=== PATIENT | female | born 1940 | race Caucasian/White ===

== ENCOUNTER 2016-09-22 11:57 | Inpatient (IN) ==
--- NOTE | 2016-09-22 12:43 | Emergency Department Note ---
Disposition Clinical Impression: NSTEMI (non-ST elevated myocardial infarction) Dyspnea Qualifiers: Dyspnea type: dyspnea on exertion Qualified Code(s): R06.09 - Other forms of dyspnea Pulmonary embolism Qualifiers: Pulmonary embolism type: other Chronicity: acute Acute cor pulmonale presence: without acute cor pulmonale Qualified Code(s): I26.99 - Other pulmonary embolism without acute cor pulmonale Disposition: Admitted As Inpatient Condition: Fair Referrals: Gudelia Celis MD [Primary Care Provider] - SOB HPI - General Stated Complaint: "shoulder blade pain"/EKG changes Time Seen by Provider: 09/22/16 12:27 Source: patient, family Mode of arrival: ambulatory Nursing Notes Reviewed: Yes Vital Signs Reviewed: Yes - History of Present Illness Pt Subjective Complaint: shortness of breath Onset (ago): day(s) (3) Context: recent illness (Rhinorrhea or congestion shortness of breath) Severity: moderate Consistency/Duration: intermittent Improves with: rest Worsens with: exertion Associated symptoms: Reports: cough. Denies: chest pain (Patient had some chest pain but none today), wheezing, sputum production, orthopnea Treatment prior to arrival: none Cough present: No Cough Description: Involuntary Cough Frequency: Intermittent Sputum production: No - Related Data Home Medications Medication Instructions Recorded Confirmed Atenolol [Tenormin] 50 mg PO BID 09/22/16 09/22/16 Calcium Carbonate/Vitamin D3 1 each PO DAILY 09/22/16 09/22/16 [Calcium 600-Vit D3 200 Tablet] Diclofenac Sodium [Voltaren] 2 gm TP QID PRN 09/22/16 09/22/16 Hydrochlorothiazide 25 mg PO BID 09/22/16 09/22/16 NIFEdipine [Nifedipine ER] 90 mg PO DAILY 09/22/16 09/22/16 [place]-3S/Dha/Epa/Fish Oil [Fish 1 each PO DAILY 09/22/16 09/22/16 Oil 1,200 mg Softgel] Potassium Chloride [K-Tab ER] 20 meq PO BID 09/22/16 09/22/16 Rosuvastatin [Crestor] 40 mg PO MO 09/22/16 09/22/16 Allergies Allergy/AdvReac Type Severity Reaction Status Date / Time atorvastatin [From Lipitor] AdvReac Muscle Pain Verified 09/22/16 13:08 rosuvastatin [From Crestor] AdvReac Muscle Pain Verified 09/22/16 17:08 All systems ED: reviewed and negative except as stated. Constitutional: Denies: fever, chills Cardiovascular: Reports: dyspnea on exertion. Denies: chest pain, palpitations Gastrointestinal: Denies: abdominal pain, nausea, vomiting, hematemesis Past Medical History - Past Medical History Source: patient, old records reviewed, nursing notes reviewed Physical Exam - General Limitations: no limitations General appearance: alert, in no apparent distress - Head Head exam: atraumatic, normocephalic, normal inspection - Eye Eye exam: Present: normal appearance, PERRL, EOMI - Expanded Eye Exam Pupils: Left: reactive - ENT ENT exam: normal exam, normal oropharynx, mucous membranes moist - Expanded ENT Exam External ear exam: Present: normal external inspection Mouth exam: Present: normal external inspection Teeth exam: Present: normal inspection Throat exam: Present: normal inspection - Neck Neck exam: Present: normal inspection, full ROM, trachea midline - Chest Chest inspection: Present: normal inspection, symmetric chest wall rise - Respiratory Respiratory exam: Present: normal lung sounds bilaterally - Cardiovascular Cardiovascular exam: Present: regular rate, irregular rhythm, normal heart sounds - Abdominal Exam Abdominal exam: Present: soft, Non-Tender. Absent: tenderness, distention, guarding, rebound, rigidity - Extremities Exam Extremities exam: Present: normal inspection, full ROM. Absent: tenderness, pedal edema - Expanded Upper Extremity Exam Shoulder exam: Present: normal inspection, full ROM Arm exam: Present: normal inspection, full ROM Elbow exam: Present: normal inspection, full ROM Forearm/Wrist exam: Present: normal inspection, full ROM Hand exam: Present: normal inspection, full ROM Vascular exam: Normal: capillary refill, radial pulse - Expanded Lower Extremity Exam Hip/Pelvis exam: Present: normal inspection, full ROM Upper leg exam: Present: normal inspection, full ROM Knee exam: Present: normal inspection, full ROM Lower leg exam: Present: normal inspection, full ROM Ankle exam: Present: normal inspection, full ROM Foot/toe exam: Present: normal inspection, full ROM Neurovascular/Tendon exam: Absent: motor deficit, sensory deficit, tendon deficit - Back Exam Back exam: Present: normal inspection, full ROM. Absent: tenderness - Neurological Exam Neurological exam: Present: alert, oriented X3 - Expanded Neurological Exam Patient oriented to: Present: person, place, time Coma Scale Eye Opening: Spontaneous Coma Scale Motor Response: Obeys Commands Coma Scale Verbal Response: Oriented Coma Scale Total: 15 - Psychiatric Psychiatric exam: Present: normal affect, normal mood - Skin Skin exam: Present: warm, dry, intact, normal color Course Vital Signs Temperature 97.6 F 09/22/16 12:56 Pulse Rate 64 09/22/16 12:56 Respiratory Rate 16 09/22/16 12:56 Blood Pressure 148/103 09/22/16 12:56 O2 Sat by Pulse Oximetry 92 L 09/22/16 12:56 Temperature 97.6 F 09/22/16 12:56 Pulse Rate 72 09/22/16 15:30 Respiratory Rate 16 09/22/16 15:30 Blood Pressure 121/89 09/22/16 15:30 O2 Sat by Pulse Oximetry 96 09/22/16 15:30 Oxygen Delivery Oxygen Delivery Nasal Cannula Shortness of Breath/Dyspnea - MDM Narrative Medical decision making narrative: I spoke with Dr. Barraza cardiology patient is not having any chest pain during her ER stay we will treat her with heparin drip the nuclear medicine scan was in immediate the plan will be to hydrate her and get a CTA tomorrow if her creatinine improves cardiology will see in consultation medicine will admit. - Differential Diagnosis Likely: acute exacerbation of chronic obstructive airways disease, congestive heart failure, pneumonia, asthma with exacerbation, pulmonary embolism, pneumothorax, arrhythmia - Medical Records Medical records reviewed: Yes I reviewed the patient's medical records. - Lab Data Lab results reviewed: Yes I reviewed the patient's lab results. Result diagrams: 09/22/16 12:55 09/22/16 12:55 Lab Results 09/22/16 09/22/16 09/22/16 Range/Units 12:55 12:55 12:55 WBC (4.3-11.1) K/mcL RBC (3.82-4.97) M/mcL Hgb (11.5-15.4) g/dL Hct (35.3-44.9) % MCV (83.0-100.0) fL MCH (28.0-33.3) pg MCHC (31.6-35.5) g/dL RDW (11.5-14.5) % Plt Count (140-400) K/mcL MPV (9.4-12.4) fL Immature Gran % (0-4) % Seg Neutrophils % % Lymphocytes % % Monocytes % % Eosinophils % % Basophils % % Neutrophils # (1.6-8.9) K/mcL Lymphocytes # (0.6-4.6) K/mcL Monocytes # (0.0-1.3) K/mcL Eosinophils # (0.0-0.6) K/mcL Basophils # (0.0-0.2) K/mcL Nucleated RBCs/100 WBC (0) /100 WBC PT 15.9 H (9.4-12.1) Seconds INR 1.5 APTT 28.3 (26.0-36.0) Seconds Sodium (136-145) mEq/L Potassium (3.5-4.5) mEq/L Chloride (98-109) mEq/L Carbon Dioxide (19-29) mEq/L BUN (7-20) mg/dL Creatinine (0.57-1.11) mg/dL Est GFR ( Amer) (> 60) Est GFR (Non-Af Amer) (> 60) BUN/Creatinine Ratio (6-26) Glucose (70-99) mg/dL Calculated Osmolality (280-300) Calcium (8.6-10.8) mg/dL Total Bilirubin 0.9 (0.2-1.2) mg/dL Direct Bilirubin 0.3 (0.0-0.5) mg/dL Indirect Bilirubin 0.6 (0.0-1.2) mg/dL AST 13 (5-34) Units/L ALT 17 (0-55) Units/L Alkaline Phosphatase 100 (38-126) Units/L Troponin I (0-0.03) ng/mL B-Natriuretic Peptide 1888 H (0-100) pg/mL Serum Total Protein 7.8 (6.0-8.3) g/dL Albumin 3.2 L (3.5-5.0) g/dL Globulin 4.6 H (2.4-3.5) g/dL Albumin/Globulin Ratio 0.7 L (1.1-2.2) Lipase 22 (8-78) Units/L 09/22/16 09/22/16 09/22/16 Range/Units 12:55 12:55 12:55 WBC 9.7 (4.3-11.1) K/mcL RBC 5.00 H (3.82-4.97) M/mcL Hgb 14.7 (11.5-15.4) g/dL Hct 45.5 H (35.3-44.9) % MCV 91.0 (83.0-100.0) fL MCH 29.4 (28.0-33.3) pg MCHC 32.3 (31.6-35.5) g/dL RDW 14.2 (11.5-14.5) % Plt Count 233 (140-400) K/mcL MPV 11.6 (9.4-12.4) fL Immature Gran % 0.7 (0-4) % Seg Neutrophils % 76.1 % Lymphocytes % 16.0 % Monocytes % 6.9 % Eosinophils % 0.1 % Basophils % 0.2 % Neutrophils # 7.4 (1.6-8.9) K/mcL Lymphocytes # 1.6 (0.6-4.6) K/mcL Monocytes # 0.7 (0.0-1.3) K/mcL Eosinophils # 0.0 (0.0-0.6) K/mcL Basophils # 0.0 (0.0-0.2) K/mcL Nucleated RBCs/100 WBC 0.3 H (0) /100 WBC PT (9.4-12.1) Seconds INR APTT (26.0-36.0) Seconds Sodium 140 (136-145) mEq/L Potassium 3.7 (3.5-4.5) mEq/L Chloride 100 (98-109) mEq/L Carbon Dioxide 28 (19-29) mEq/L BUN 51 H (7-20) mg/dL Creatinine 1.25 H (0.57-1.11) mg/dL Est GFR ( Amer) 50 L (> 60) Est GFR (Non-Af Amer) 42 L (> 60) BUN/Creatinine Ratio 41 H (6-26) Glucose 151 H (70-99) mg/dL Calculated Osmolality 307 H (280-300) Calcium 9.6 (8.6-10.8) mg/dL Total Bilirubin (0.2-1.2) mg/dL Direct Bilirubin (0.0-0.5) mg/dL Indirect Bilirubin (0.0-1.2) mg/dL AST (5-34) Units/L ALT (0-55) Units/L Alkaline Phosphatase (38-126) Units/L Troponin I 0.23 H* (0-0.03) ng/mL B-Natriuretic Peptide (0-100) pg/mL Serum Total Protein (6.0-8.3) g/dL Albumin (3.5-5.0) g/dL Globulin (2.4-3.5) g/dL Albumin/Globulin Ratio (1.1-2.2) Lipase (8-78) Units/L - Radiology Data Radiology results reviewed: Yes I reviewed the patient's radiology results. - EKG Data EKG attestation: Yes I reviewed and interpreted this EKG. Rate: Reports: normal Rhythm: Reports: A.Fib Murphy/QRS: Reports: normal Interpretation: Reports: nonspecific ST-T wave changes Critical Care Time Critical Care Time: Yes Total Critical Care Time: 40 Attestation: Critical care performed: Time is exclusive of separately billable procedures. Time includes: direct patient care, patient reassessment, coordination of patient care, interpretation of data (laboratory data, radiology data, and respiratory data), review of patient's medical records, medical consultation and documentation of patient care. Procedures included in critical care time: Procedures excluded from critical care time:
[2016-09-22 13:04] LABS: Basophils % 0.2 %; Eosinophils % 0.1 %; Hematocrit 45.5 % (35.3-44.9); Hemoglobin 14.7 g/dL (11.5-15.4); Immature Granulocytes % 0.7 % (0-4); Lymphocytes # 1.6 K/mcL (0.6-4.6); Mean Corpuscular HGB Conc 32.3 g/dL (31.6-35.5); Mean Corpuscular Hemoglobin 29.4 pg (28.0-33.3); Mean Platelet Volume 11.6 fL (9.4-12.4); Monocytes # 0.7 K/mcL (0.0-1.3); Monocytes % 6.9 %; Neutrophils # 7.4 K/mcL (1.6-8.9); Nucleated Red Blood Cells 0.3 /100 WBC (0); Platelet Count 233 K/mcL (140-400); Red Cell Distribution Width 14.2 % (11.5-14.5); Segmented Neutrophils % 76.1 %
[2016-09-22 13:10] LABS: INR 1.5; Prothrombin Time 15.9 Seconds (9.4-12.1)
[2016-09-22 13:12] LABS: Activated Partial Thrombo Time 28.3 Seconds (26.0-36.0)
[2016-09-22 13:20] LABS: Calcium 9.6 mg/dL (8.6-10.8); Potassium 3.7 mEq/L (3.5-4.5)
[2016-09-22 13:21] LABS: Albumin 3.2 g/dL (3.5-5.0); Albumin/Globulin Ratio 0.7 (1.1-2.2); Bilirubin,Direct 0.3 mg/dL (0.0-0.5); Bilirubin,Indirect 0.6 mg/dL (0.0-1.2); Bilirubin,Total 0.9 mg/dL (0.2-1.2); Globulin 4.6 g/dL (2.4-3.5); Total Protein 7.8 g/dL (6.0-8.3)
[2016-09-22] MEDS ORDERED: Aspirin 81 MG TAB.CHEW PO STA (14:09)
[2016-09-22] MEDS ORDERED: *HR* Heparin 5,000 UNIT/ML VIAL IVP PRN ×2 (15:54)
[2016-09-22] MEDS ORDERED: *HR* Heparin 5,000 UNIT/ML VIAL IVP ONE (15:54)
[2016-09-22] MEDS ORDERED: Heparin 25,000 UNIT/500 ML D5W 25,000 UNIT/500 ML MLS IVC SCH (16:00)
[2016-09-22] MEDS ORDERED: Acetaminophen 325 MG TABLET PO PRN (19:28)
[2016-09-22] MEDS ORDERED: Naloxone 0.4 MG/ML INJ IVP PRN (19:28)
[2016-09-22] MEDS: *HR* Enoxaparin 120 MG/0.8 ML SYRINGE SQ SCH (20:50)
--- NOTE | 2016-09-22 20:58 | Internal Med History&Physical ---
Date of Encounter: 09/22/16 Time of Encounter: 20:15 Assessment and Plan (1) Acute respiratory failure with hypoxia Current visit: Yes Status: Acute Patient with acute respiratory failure and hypoxia. Certain etiology. Will admit inpatient. Could be due to pulmonary embolism as patient's chest x-ray appears clear. VQ scan shows intermediate probability. On O2 supplementation. High risk for complications. (2) Atrial fibrillation Current visit: Yes Status: Chronic Likely chronic but controlled atrial fibrillation. On EKG and on telemetry. Patient on atenolol. Will continue. Not on any anticoagulation but patient is currently receiving Lovenox. Qualifiers: Atrial fibrillation type: paroxysmal Qualified Code(s): I48.0 - Paroxysmal atrial fibrillation (3) NSTEMI (non-ST elevated myocardial infarction) Current visit: Yes Status: Acute Elevated troponins. Non-ST elevation myocardial infarction versus hypoxia related. Started on Lovenox. We will get 2-D echocardiogram tomorrow. Telemetry. Trend troponins. Nitroglycerin patient develops chest pain (4) Pulmonary embolism Current visit: Yes Status: Suspected Patient has hypoxia disproportionate to chest x-ray findings. We just cannot shows intermediate probability for PE. Will get CT scan of the chest with contrast when her kidney function improves. Qualifiers: Pulmonary embolism type: other Chronicity: acute Acute cor pulmonale presence: without acute cor pulmonale Qualified Code(s): I26.99 - Other pulmonary embolism without acute cor pulmonale (5) Acute renal failure Current visit: Yes Status: Acute Patient has elevated BUN and creatinine are up over her baseline. Could be related to dehydration. Patient also on hydrochlorothiazide at home. We will gently hydrate and follow renal function. Hold hydrochlorothiazide. Qualifiers: Acute renal failure type: unspecified Qualified Code(s): N17.9 - Acute kidney failure, unspecified Internal Medicine - H&P: HPI Chief complaint: Shortness of breath with ambulation Admitted From: Emergency Dept Plans for Post Hospital Care: Home History of present illness: Ms. Corral is a 76 year old female patient with history of hypertension, hyperlipidemia and ovarian cancer presented to the ER with complaints of shortness of breath especially with ambulation. She would get really tired and had to take a break even after walking short distances. She does not use oxygen at home. She has never had any coronary artery disease or has been diagnosed with congestive heart failure. She denies any chest pain but she did have some pain in her right subscapular area earlier today that has spontaneously resolved. She denies any cough, fever or chills or night sweats. Denies any palpitations. She does recollect having an abnormal heart rhythm but she does not know exactly what it is other than skipped or dropped beats that she used to have. No nausea or vomiting. No diarrhea or constipation. She has not developed any recent leg swelling. No recent travel. Past Med Surg Social Fam HX - Past Medical History Medical history: cancer, hyperlipidemia, hypertension Psychiatric history: no psych history - Social History Smoking Status: Never smoker Smokeless Tobacco Status: No Alcohol use: none Drug use: none - Additional Family History Additional family history: Reviewed and found noncontributory at this time Internal Medicine - H&P: Meds Atenolol [Tenormin] 50 mg PO BID 09/22/16 [History] Calcium Carbonate/Vitamin D3 [Calcium 600-Vit D3 200 Tablet] 1 each PO DAILY 01/03 [History] Diclofenac Sodium [Voltaren] 2 gm TP QID PRN 09/22/16 [History] Hydrochlorothiazide 25 mg PO BID 09/22/16 [History] NIFEdipine [Nifedipine ER] 90 mg PO DAILY 09/22/16 [History] [place]-3S/Dha/Epa/Fish Oil [Fish Oil 1,200 mg Softgel] 1 each PO DAILY 09/22/16 [ History] Potassium Chloride [K-Tab ER] 20 meq PO BID 09/22/16 [History] Rosuvastatin [Crestor] 40 mg PO MO 09/22/16 [History] Allergies atorvastatin [From Lipitor] Adverse Reaction (Verified 09/22/16 13:08) Muscle Pain rosuvastatin [From Crestor] Adverse Reaction (Verified 09/22/16 17:08) Muscle Pain Patient states she does take this medication once weekly, however she cannot take daily. All Systems PM: A 10-system review of systems was performed and is negative for pertinent findings except as documented above in the HPI. - Constitutional Constitutional: no chills, no fever(s), no night sweats - EENT Eyes: no change in vision, no discharge, no pain, no photophobia Ears: no ear discharge, no ear pain, no tinnitus Nose, mouth and throat: no dysphagia, no nasal discharge, no neck pain, no sore throat - Cardiovascular Cardiovascular ROS IM: dyspnea, dyspnea on exertion, no chest pain, no diaphoresis, no lightheadedness, no palpitations, no syncope - Respiratory Respiratory: no cough, no dyspnea, no wheezing, no excessive phlegm production - Gastrointestinal Gastrointestinal: no abdominal pain, no diarrhea, no hematemesis, no hematochezia, no melena, no nausea, no vomiting - Genitourinary Genitourinary: no change in urinary stream, no dysuria, no flank pain, no hematuria - Musculoskeletal Musculoskeletal ROS IM: no numbness, no tingling - Neurological Neurological ROS: no confusion, no convulsions, no focal weakness, no numbness, no tingling, no tremor(s) - Psychiatric Psychiatric: no behavioral changes, no confusion - Hematologic/Lymphatic Hematologic/Lymphatic: no easy bruising - Constitutional Vitals: Temp Pulse Resp BP Pulse Ox 97.5 F L 72 20 137/86 89 L 09/22/16 19:25 09/22/16 19:25 09/22/16 19:25 09/22/16 19:25 09/22/16 19:25 General appearance: Present: cooperative, A&O X 3, pleasant, obese, answers questions appropriately Exam: Moderate respiratory distress - Eye Eye exam: Present: EOMI, PERRL, conjuntiva pink, sclera anicteric - Neck Neck exam general surgery: Present: supple, trachea midline. Absent: lymphadenopathy - Respiratory Respiratory exam: Present: CTAB. Absent: accessory muscle use, rales, rhonchi, wheezes - Cardiovascular Cardiovascular exam: Present: irregular rhythm, +S1, +S2. Absent: diastolic murmur, gallop, rubs, systolic murmur - GI/Abdominal GI/Abdominal exam: Present: normal bowel sounds, soft, no peritoneal signs. Absent: distended, tenderness - Extremities Exam Extremities exam: Present: warm, radial pulses palpable and symetrical. Absent : calf tenderness, cyanotic, pedal edema - Neurological Exam Neurological exam: Present: alert, oriented X3, no focal deficits. Absent: facial droop, speech deficit - Skin Skin exam: Present: dry, intact Internal Med - H&P Results - Labs CBC & Chem 7: 09/22/16 12:55 09/22/16 12:55 - Impressions Impressions Chest X-Ray 09/22/16 12:34 IMPRESSION: No acute abnormality. D/ / Greyson Huynh MD / Greyson Huynh MD Interpreting Provider: Greyson Huynh MD Pulmonary Perfusion Imaging 09/22/16 15:03 IMPRESSION: Intermediate probability of pulmonary embolus, primarily on the left. If there is strong clinical concern for pulmonary emboli, Consider chest CTPA. D/ / Terrance Salcido MD / Terrance Salcido MD Interpreting Provider: Terrance Salcido MD - Attending Attestation This document has been at least partially created by [employer] recognition technology by Dr. Hernandez. Errors in grammar, wording or other phrases may exist. If errors are found after the documentation is signed, they will be addressed individually in the addendum section of this document when appropriate.
[2016-09-22] MEDS ORDERED: 0.9 % Sodium Chloride 1,000 ML IVC SCH (21:15)
[2016-09-23 02:03] LABS: Basophils % 0.4 %; Eosinophils % 0.1 %; Hematocrit 41.5 % (35.3-44.9); Hemoglobin 13.3 g/dL (11.5-15.4); Immature Granulocytes % 0.9 % (0-4); Immature Platelets 12.4 % (1.1-6.1); Lymphocytes # 1.7 K/mcL (0.6-4.6); Mean Corpuscular Hemoglobin 29.3 pg (28.0-33.3); Mean Corpuscular Volume 91.4 fL (83.0-100.0); Mean Platelet Volume 12.2 fL (9.4-12.4); Monocytes # 0.8 K/mcL (0.0-1.3); Monocytes % 8.1 %; Neutrophils # 7.3 K/mcL (1.6-8.9); Nucleated Red Blood Cells 0.9 /100 WBC (0); Platelet Count 182 K/mcL (140-400); Red Blood Count 4.54 M/mcL (3.82-4.97); Red Cell Distribution Width 14.3 % (11.5-14.5); Segmented Neutrophils % 73.5 %
[2016-09-23 02:32] LABS: BUN/Creatinine Ratio 49 (6-26); Blood Urea Nitrogen 51 mg/dL (7-20); Calcium 8.6 mg/dL (8.6-10.8); Carbon Dioxide 21 mEq/L (19-29); Chloride 104 mEq/L (98-109); Chol/HDL Ratio 6.7 (0-4.9); Cholesterol 215 mg/dL (< 200); Glucose 113 mg/dL (70-99); HDL Cholesterol 32 mg/dL (40-59); LDL Cholesterol,Calculated 151 mg/dL (0-99); Osmolality,Calculated 304 (280-300); Potassium 3.4 mEq/L (3.5-4.5); Sodium 140 mEq/L (136-145); Triglycerides 159 mg/dL (< 150); eGFR For African Americans > 60 (> 60); eGFR For Non-African Americans 51 (> 60)
[2016-09-23 03:20] LABS: Large Platelets Present (Not Present); Platelet Estimate Normal (Normal); Polychromasia 1+ (Not Present)
--- NOTE | 2016-09-23 03:59 | Electrocardiograph Report ---
[facility] [employer] Test Date: 2016-09-22 Pat Name: Clementina Corral Department: 102 Room: [id number] Gender: F Backside Grinder: : [id number] Requested By: Geo Jackson Order Number: [id number] Reading MD: Manuel Jacobs MD Measurements Intervals [place] Rate: 79 P: ND: 0 QRS: 48 QRSD: 106 T: 135 QT: 362 QTc: 396 Interpretive Statements ATRIAL FIBRILLATION ST DEVIATION AND MODERATE T-WAVE ABNORMALITY, CONSIDER LATERAL ISCHEMIA Electronically Signed On 09-23-2016 3:58:06 EST by Manuel Jacobs MD
[2016-09-23] MEDS: *HR* Enoxaparin 120 MG/0.8 ML SYRINGE SQ SCH (06:03)
[2016-09-23] MEDS ORDERED: VITAMIN D3 PO SCH (09:00)
[2016-09-23] MEDS ORDERED: NIFEdipine XL (24 HR) 30 MG TAB.ER.24 PO SCH (09:00)
[2016-09-23] MEDS ORDERED: (Omega-3s/Dha/Epa/Fish Oil [Fish Oil 1,200 Mg Softgel PO SCH (09:00)
[2016-09-23] MEDS ORDERED: CALCIUM CARBONATE PO SCH (09:00)
--- NOTE | 2016-09-23 10:38 | Cardiology Consult Note ---
Date of Encounter: 09/23/16 Time of Encounter: 08:30 Assessment and Plan (1) Pulmonary embolism Current Visit: Yes Status: Suspected Per cardiology: -Shortness of breath for 3 days. Right sided shoulder blade pain. Currently not tachy, but was on arrival. Is requiring NC 6L O2 (not on home O2). -Chest x-ray negative. -VQ perfusion scan with intermediate probability of PE, primarily of the left lung. -No CT performed due to ADINA. -Management per primary service. -Discussed and reviewed with Dr. Barraza, recommend CT chest (patient's creatinine improved today). -On Lovenox -Suspect possible PE, may be contributing to elevated troponin. -Will check echo (ANDREW) Qualifiers: Pulmonary embolism type: other Chronicity: acute Acute cor pulmonale presence: without acute cor pulmonale Qualified Code(s): I26.99 - Other pulmonary embolism without acute cor pulmonale (2) Elevated troponin Current Visit: Yes Status: Acute Per cardiology: -Flat and adynamic troponins of 0.23, 0.23, and 0.26. -Elevated in the setting of possible PE (intermediate on VQ) and ADINA. -On therapeutic lovenox. -Echo pending per primary service. -Will add asa 81mg daily. -Suspect demand ischemia due to possible PE -Recommend medical management at this time. No cardiac rehab warranted. -Further recommendations pending echocardiogram. (ANDREW) (3) Elevated brain natriuretic peptide (BNP) level Current Visit: Yes Status: Acute Per Cardiology: BNP elevated in the 1800s. Euvolemic on exam. Chest x-ray with no acute findings. Does not appear to be in overt heart failure. Previous EF on echo 6%, mild diastolic dysfunction, normal RV structure and function, trace TR. Echo pending. Further recs after echo. Not currently on diuretics, clinically appears stable. Presented with mild ADINA. (4) Acute kidney injury Current Visit: Yes Status: Acute Per cardiology: -Creatinine on admission 1.25. -Baseline 0.8. -Today creatinine 1.05. -Management per primary service. -May be contributing to elevated troponin. (ANDREW) Discussion w patient/family: The assessment and plan as outlined above was discussed with the patient and/or family members who expressed understanding and agreement. All questions were answered. Thank you for involving us in the care of your patient. Please call with any questions. Patient seen and examined with ROBERT Strong Discussed and reviewed with . History of Present Illness Consult date: 09/22/16 Requesting physician: Teresita Hernandez Consult reason: ?NSTEMI Chief complaint: Shortness of breath History of present illness: Ms. Corral is a 76 year old female with a relevant past medical history of HTN and hyperlipidemia. Patient presented to the ER due to worsening shortness of breath and right sided shoulder blade pain. Patient states shortness of breath and right shoulder blade pain began 3 days ago. States symptoms were accompanied by a cough. Patient denies left sided chest pain. Patient denies fever,chills, nausea, or vomiting. Patient denies increased fatigue. Admits to shortness of breath with excertion. (ANDREW) Past Med Surg Social Fam HX - Past Medical History Attestation: Yes The following information was validated with the patient. Source: patient, old records reviewed Medical history: cancer, hyperlipidemia, hypertension Psychiatric history: no psych history - Social History Smoking Status: Never smoker Smokeless Tobacco Status: No Alcohol use: none Drug use: none Medications and Allergies Atenolol [Tenormin] 50 mg PO BID 09/22/16 [History] Calcium Carbonate/Vitamin D3 [Calcium 600-Vit D3 200 Tablet] 1 each PO DAILY 01/03 [History] Diclofenac Sodium [Voltaren] 2 gm TP QID PRN 09/22/16 [History] Hydrochlorothiazide 25 mg PO BID 09/22/16 [History] NIFEdipine [Nifedipine ER] 90 mg PO DAILY 09/22/16 [History] [place]-3S/Dha/Epa/Fish Oil [Fish Oil 1,200 mg Softgel] 1 each PO DAILY 09/22/16 [ History] Potassium Chloride [K-Tab ER] 20 meq PO BID 09/22/16 [History] Rosuvastatin [Crestor] 40 mg PO MO 09/22/16 [History] Allergies atorvastatin [From Lipitor] Adverse Reaction (Verified 09/22/16 13:08) Muscle Pain rosuvastatin [From Crestor] Adverse Reaction (Verified 09/22/16 17:08) Muscle Pain Patient states she does take this medication once weekly, however she cannot take daily. All Systems Review: A 10-system review of systems was performed and is negative for pertinent findings except as documented above in the HPI. - Cardiovascular Cardiovascular: as per HPI, dyspnea on exertion - Respiratory Respiratory: cough, dyspnea Physical Examination Selected Entries 09/23/16 04:00 09/23/16 07:17 Temperature 97.5 F L 97.7 F Pulse Rate 71 84 Respiratory Rate 18 18 Blood Pressure 125/80 130/84 O2 Sat by Pulse Oximetry 93 L 91 L General: Conversant, No Apparent Distress HEENT: Atraumatic, Normocephaly, Mucus Membranes Moist Neck: No JVD, Normal carotid pulses Cardiac: Reg Rate and Rhythm, Normal S1 and S2, No Murmur Lungs: Normal Breath Sounds, No Wheeze, Rales, Rhonchi Neuro: Alert and responsive, No focal deficits noted Abdomen: Soft, Non-Tender Skin: No rashes noted on visualized skin Musculoskeletal: No Chest Wall Tenderness Extremities: No Clubbing, No Cyanosis, No Edema, Normal Pulses Results 09/23/16 01:05 09/23/16 01:05 Impressions Chest X-Ray 09/22/16 12:34 IMPRESSION: No acute abnormality. D/ / Greyson Huynh MD / Greyson Huynh MD Interpreting Provider: Greyson Huynh MD Pulmonary Perfusion Imaging 09/22/16 15:03 IMPRESSION: Intermediate probability of pulmonary embolus, primarily on the left. If there is strong clinical concern for pulmonary emboli, Consider chest CTPA. D/ / Terrance Salcido MD / Terrance Salcido MD Interpreting Provider: Terrance Salcido MD Active Medications Acetaminophen (Tylenol) 650 mg PO Q6HR PRN PRN Reason: Mild Pain (1-3) Stop: 03/24/17 19:29 Aspirin (Aspirin Ec) 81 mg PO DAILY [facility] Stop: 03/25/17 10:01 Atenolol (Tenormin) 50 mg PO BID [facility] Stop: 03/25/17 09:01 Last Admin: 09/23/16 08:36 Dose: 50 mg Enoxaparin Sodium (Lovenox) 110 mg 1 mg/kg (110 mg) SQ Q12HR [facility]LEY PRN Reason: Protocol Stop: 03/24/17 19:32 Last Admin: 09/23/16 06:03 Dose: 110 mg Naloxone HCl (Narcan) 0.4 mg IVP Q2MIN PRN PRN Reason: Opioid Reversal Stop: 03/24/17 19:29 Nifedipine (Procardia Xl) 90 mg PO DAILY [facility] Stop: 03/25/17 09:01 Last Admin: 09/23/16 08:36 Dose: 90 mg Pharmacy Profile Note (Patient Taking Own Medication) 0 each PO DAILY [facility] Stop: 03/25/17 09:01 Last Admin: 09/23/16 08:22 Dose: Not Given Pharmacy Profile Note (Patient Taking Own Medication) 0 each TP QID PRN PRN Reason: Pain Pharmacy Profile Note (Patient Taking Own Medication) 0 each PO DAILY [facility] Stop: 03/25/17 09:01 Last Admin: 09/23/16 08:22 Dose: Not Given Potassium Chloride (Potassium Chloride) 20 meq PO BID [facility] Stop: 03/25/17 09:01 Last Admin: 09/23/16 08:36 Dose: 20 meq Rosuvastatin Calcium (Crestor) 40 mg PO MO [facility]LEY Stop: 03/25/17 09:01 Last Admin: 09/23/16 08:36 Dose: 40 mg Laboratory Tests 09/22/16 09/22/16 09/22/16 12:55 12:55 12:55 Creatinine 1.25 H Troponin I 0.23 H* B-Natriuretic Peptide 1888 H 09/22/16 09/23/16 09/23/16 20:37 01:05 01:05 Creatinine 1.05 Troponin I 0.23 H* 0.26 H* B-Natriuretic Peptide - Imaging and Cardiology Chest Xray: report reviewed Echo: pending Other Results: VQ perfusion scan reviewed - EKG Interpretation EKG results cardiology: personally reviewed (ECG with sinus rhythm with frequent PACs.), other (Telemetry reviewed with average heart rate 77, sinus rhythm Maximum heart rate 110. Occasional PVCs and PACs noted.) Consult Discharge Plan - Plan Referrals: Gudelia Celis MD [Primary Care Provider] -
[2016-09-23] MEDS: Aspirin Enteric Coated 81 MG Tablet PO SCH (11:45)
[2016-09-23] MEDS ORDERED: *HR* Acetylcysteine 20% 600 MG/3 ML ORAL SYRINGE PO ONE (12:00)
--- NOTE | 2016-09-23 15:54 | ECHO - Doppler Report ---
Echocardiogram Name: Clemenitna Corral Date of Study: 09/23/2016 Date: 1940 Ht: 64.0 in Medical Record#: [id number] Age: 76 Wt: 242.0 lb Gender: Female BSA: 2.12 Order #: [id number] Location: [facility] Room #: [id number] Reading Physician: Monet Vilchis DO Crester: Nelson Squires RDCS Ordering Physician: Teresita Hernandez MD Primary Physician: Gudelia Celis MD Indications: Shortness of breath, NSTEMI Impressions: LV systolic function was suboptimally visualized but may demonstrate mild reduction in function. RV is large and foreshortened on this study. Function could not be well evaluated. There is IV septal flattening in systole and diastole suggesting RV pressure and volume overload. Moderately severe tricuspid and pulmonic regurgitation. There is a long, tubular somewhat mobile echo density in the pulmonary artery suggestive of thrombus consistent with her diagnosis of pulmonary embolism. Cardiology service aware of findings. Left Ventricular Wall Motion: Rest Echo Findings The mid inferior septal, basal inferior septal, mid anterior lateral, basal anterior lateral, mid anterior septal, mid inferior lateral, basal anterior septal and basal inferior lateral doan were hypokinetic. The apex, apical inferior, mid inferior, basal inferior, apical anterior, mid anterior, basal anterior, apical septal and apical lateral doan were not visualized. Findings: Study Quality * Technically adequate exam. ECG Findings * Normal sinus rhythm. Aortic Valve * No aortic regurgitation. * Trileaflet aortic valve. * Normal aortic valve structure. * No aortic stenosis. Mitral Valve * No mitral regurgitation. * Normal mitral valve structure. * No mitral stenosis. Left Atrium * Normal left atrial size. Tricuspid Valve * Normal tricuspid valve structure. * Moderate-severe tricuspid regurgitation. * Estimated RA pressure is 8 mmHg. * Estimated RVSP is 62 mmHg. * Severe pulmonary hypertension. Pulmonic Valve * Pulmonic valve is not well visualized. * No pulmonic stenosis. * Moderate-severe pulmonic regurgitation. Right Atrium * Severely dilated right atrium. Right Ventricle * RV is large and foreshortened. Function could not be well evaluated. Left Ventricle * Indeterminate diastolic function. * Atypical septal motion. * LV systolic function is not well visualized. There may be mild reduction in function. Not all segments were well visualized. Interatrial Septum * No evidence of PFO by color Doppler. IVC * < 50% respiratory change. * The IVC is not dilated. Pericardium * There is no pericardial effusion present. Pulmonary Artery * Pulmonary artery size was not well visualized. There is a long, tubular mobile echodensity suggestive of thrombus. Aorta * Normally sized aortic root. History Hypertension Hypercholesteremia Family History of CAD 09/06/14 a Previous Echo was performed. Measurements: BP: 117/ 79 2D Normal Values IVSd: 1.08 cm 0.6 - 1.0 cm LVIDd: 4.34 cm 3.7 - 5.6 cm LVPWd: .99 cm 0.6 - 1.1 cm LVIDs: 2.91 cm 1.5 - 3.6 cm AO: 2.80 cm < 4.0 cm LA: 2.90 cm 2.0 - 4.0cm %FS: 32.90 cm >25 % LA volume: 50 Mitral Valve Peak E:.44 m/sec Peak A:.50 m/sec E/A Ratio:0.9 Peak E' Lat Carlos:6.64 cm/s Peak E' Med Carlos:6.53 cm/s E/E' Lat Ratio:6.4 E/E' Med Ratio:6.5 Tricuspid Valve TV Regurg Peak Grad: 54.00mmHg TV Regurg Peak Carlos: 3.68m/sec Pulmonic Valve Pressure 1/2 time: 259.5msec Updated by Monet Vilchis on 09/23/2016 3:44:50 PM electronically signed on 09/23/2016 3:47:47 PM with status of Final Wall Motion Murphy: 1=Normal, 2=Hypokinesis, 3=Akinesis, 4=Dyskinesis, 5=Aneurysmal, 6=Hyperkinetic, X=Not Visualized (Blank)=Missing
--- NOTE | 2016-09-23 15:57 | Event Note ---
Date of Encounter: 09/23/16 Time of Encounter: 15:53 I called pulmonary/critical covering physician, Dr. Polo, to discuss case and requested consultation. Extensive bilateral pulmonary emboli on CT. Echocardiogram discussed with Dr. Vilchis - apparent RV dilation and thrombus in the main pulmonary artery. Patient clinically appears stable, but that could certainly change given the extent of PE described and the strain noted on the RV. tPA should be considered. Check venous u/s LEs. Continue therapeutic lovenox for now.
[2016-09-23] MEDS ORDERED: *HR* Heparin 5,000 UNIT/ML VIAL IVP PRN ×2 (16:49)
[2016-09-23] MEDS ORDERED: *HR* Heparin 5,000 UNIT/ML VIAL IVP ONE (16:49)
--- NOTE | 2016-09-23 17:05 | Pulmonology Consult Note ---
Date of Encounter: 09/23/16 Time of Encounter: 17:01 Assessment and Plan (1) Pulmonary embolism Current Visit: Yes Status: Suspected Submassive pulmonary embolus with evidence of acute right ventricular strain but without hemodynamic instability. No acute indication for systemic thrombolysis or clear evidence of the utility of catheter directed thrombolysis in this situation -Recommend monitor overnight in ICU for high risk of sudden deterioration -Given obesity and recent kidney injury favor UFH gtt vs lovenox -LE duplex to r/o residual DVT if present recommend placement of IVC filter ( overnight) -No absolute contraindication to systemic tPA if acutely hemodynamically unstable requiring emergent intervention would favor administration of 100mg of tPA over two hours through a peripheral IV. Should patient's BP become more unstable with increasing O2 requirments but not emergent intevetion would consider transfer to tertiary referral center for catheter directed thrombolysis (e.g [facility]) -if tPA needed stop heparin during infusion followed by checking aPTT and hearpin can be restarted once aPTT is less than twice its upper limit of normal -Avoid pre load medications (BB's CCBs, Nitrates, diuretics) and acutely would hold all BP meds. Also would generally avoid tge use of PAP in this population ( i.e BiPAP/CPAP) -Can give judicious volume challenges of crystalloid (500cc at at time) however with aggressive volume resuscitation risk of worsening right ventricular load leading to LV failure increases Case d/w Cardiology Service Qualifiers: Pulmonary embolism type: other Chronicity: acute Acute cor pulmonale presence: without acute cor pulmonale Qualified Code(s): I26.99 - Other pulmonary embolism without acute cor pulmonale (2) Lung nodule < 6cm on CT Current Visit: Yes Status: Acute f/u outpatient mngt increased risk for lung ca given age and previous malignancy (although patient life long non smoker) (3) Acute kidney injury Current Visit: Yes Status: Acute improving mngt per Primary Medicine Service (4) Acute respiratory failure with hypoxia Current Visit: Yes Status: Acute this is secondary to acute PE History of Present Illness Consult date: 09/23/16 Requesting physician: Luis Daniel Barraza Reason for consult: pulmonary embolism Chief complaint: Chest Pain History of present illness: Ms. Corral is a very pleasant 76-year-old woman who presented earlier today to the emergency department after a 2 day history of weakness increased work of breathing and pain in her shoulder blades. Initial cardiac evaluation was notable for modest troponin elevation and nonspecific changes in her EKG that was not consistent with acute coronary syndrome. Ventilation/perfusion scan was performed which was indeterminate this was followed by CT angiogram which was notable for extensive clot burden within the main pulmonary artery trunk along with subsegmental branches She has a history of Ovarian cancer in the early 1980s that was associated with a blood clot at that time however she has had no further episodes of venous thromboembolism to her knowledge. She denies lower extremity edema swelling or pain no recent long car rides or travel no history of trauma to the lower extremities. She also has no recent history of stroke intracerebral hemorrhage or abdominal surgery or gastrointestinal bleeding. She is have hypertension but is well-controlled on a couple of oral medications. Past Med Surg Social Fam HX - Past Medical History Medical history: cancer, hyperlipidemia, hypertension Psychiatric history: no psych history - Social History Smoking Status: Never smoker Smokeless Tobacco Status: No Alcohol use: none Drug use: none Medications and Allergies Atenolol [Tenormin] 50 mg PO BID 09/22/16 [History] Calcium Carbonate/Vitamin D3 [Calcium 600-Vit D3 200 Tablet] 1 each PO DAILY 01/03 [History] Diclofenac Sodium [Voltaren] 2 gm TP QID PRN 09/22/16 [History] Hydrochlorothiazide 25 mg PO BID 09/22/16 [History] NIFEdipine [Nifedipine ER] 90 mg PO DAILY 09/22/16 [History] [place]-3S/Dha/Epa/Fish Oil [Fish Oil 1,200 mg Softgel] 1 each PO DAILY 09/22/16 [ History] Potassium Chloride [K-Tab ER] 20 meq PO BID 09/22/16 [History] Rosuvastatin [Crestor] 40 mg PO MO 09/22/16 [History] Allergies atorvastatin [From Lipitor] Adverse Reaction (Verified 09/22/16 13:08) Muscle Pain rosuvastatin [From Crestor] Adverse Reaction (Verified 09/22/16 17:08) Muscle Pain Patient states she does take this medication once weekly, however she cannot take daily. All Systems: A 10-system review of systems was performed and is negative for pertinent findings except as documented above in the HPI. Physical Examination Vital Signs: Vital Signs, Last 4 Hours Temp Pulse Resp Pulse Ox 09/23/16 15:29 97.5 F L 64 20 94 L General appearance: no acute distress Eyes: nonicteric ENT: oropharynx moist Neck: supple Effort: mildly labored Auscultation: bilateral: clear Cardiovascular: regular rate and rhythm Gastrointestinal: normoactive bowel sounds Integumentary: normal Extremities: no edema, pink and warm, no ischemia or petechiae Musculoskeletal: no deformities normal mental status, non-focal exam, pupils equal and round, CN II-XII normal mood appropriate Results - Laboratory Findings CBC and BMP: 09/23/16 01:05 09/23/16 01:05 PT/INR, D-dimer PT 15.9 Seconds (9.4-12.1) H 09/22/16 12:55 Abnormal lab findings: Abnormal lab results Nucleated RBCs/100 WBC 0.9 /100 WBC (0) H 09/23/16 01:05 Large Platelets Present (Not Present) A 09/23/16 01:05 Immature Plt Fraction 12.4 % (1.1-6.1) H 09/23/16 01:05 Polychromasia 1+ (Not Present) A 09/23/16 01:05 PT 15.9 Seconds (9.4-12.1) H 09/22/16 12:55 Potassium 3.4 mEq/L (3.5-4.5) L 09/23/16 01:05 BUN 51 mg/dL (7-20) H 09/23/16 01:05 Est GFR (Non-Af Amer) 51 (> 60) L 09/23/16 01:05 BUN/Creatinine Ratio 49 (6-26) H 09/23/16 01:05 Glucose 113 mg/dL (70-99) H 09/23/16 01:05 Calculated Osmolality 304 (280-300) H 09/23/16 01:05 Troponin I 0.26 ng/mL (0-0.03) H* 09/23/16 01:05 B-Natriuretic Peptide 1888 pg/mL (0-100) H 09/22/16 12:55 Albumin 3.2 g/dL (3.5-5.0) L 09/22/16 12:55 Globulin 4.6 g/dL (2.4-3.5) H 09/22/16 12:55 Albumin/Globulin Ratio 0.7 (1.1-2.2) L 09/22/16 12:55 Triglycerides 159 mg/dL (< 150) H 09/23/16 01:05 Cholesterol 215 mg/dL (< 200) H 09/23/16 01:05 LDL Cholesterol, Calc 151 mg/dL (0-99) H 09/23/16 01:05 VLDL Cholesterol, Calc 32 mg/dL (< 31) H 09/23/16 01:05 HDL Cholesterol 32 mg/dL (40-59) L 09/23/16 01:05 Cholesterol/HDL Ratio 6.7 (0-4.9) H 09/23/16 01:05 - Diagnostic Findings Chest x-ray: report reviewed, image reviewed CT scan - chest: report reviewed (IMPRESSION:), image reviewed U/S of Legs: pending - Clinical Findings Intake & Output: Intake & Output 09/23/16 09/23/16 09/23/16 07:59 15:59 23:59 Intake Total 360 / 360 Output Total 0 / 0 Balance 360 / 360 Consult Discharge Plan - Plan Referrals: Gudelia Celis MD [Primary Care Provider] -
[2016-09-23] MEDS ORDERED: 0.9 % Sodium Chloride 1,000 ML IVC SCH (17:45)
--- NOTE | 2016-09-23 18:09 | Internal Med Progress Note ---
Date of Encounter: 09/23/16 Time of Encounter: 10:00 - Assessment and plan (1) Pulmonary embolism Current Visit: Yes Status: Suspected Assessment and plan: CTA shows a massive bilateral PE with signs of right ventricular strain. Patient has stable vital signs right now. We will closely monitor patient, avoid dehydration. Continue heparin drip. Keep patient in the ICU and hold blood pressure medications. Pulmonary consult is on case. Patient is at high risk because of she is on heparin drip, need close monitoring. Qualifiers: Pulmonary embolism type: other Chronicity: acute Acute cor pulmonale presence: without acute cor pulmonale Qualified Code(s): I26.99 - Other pulmonary embolism without acute cor pulmonale (2) Acute respiratory failure with hypoxia Current Visit: Yes Status: Acute Assessment and plan: Due to massive PE. Will treat underlying disease and close monitor patient (3) Dyspnea Current Visit: Yes Status: Acute Assessment and plan: Management as above Qualifiers: Dyspnea type: shortness of breath Qualified Code(s): R06.02 - Shortness of breath (4) Elevated troponin Current Visit: Yes Status: Acute Assessment and plan: Most likely demand ischemia. Cardiology consult appreciated (5) Atrial fibrillation Current Visit: Yes Status: Chronic Assessment and plan: Chronic A. fib with rate being well controlled. Patient on heparin drip now. Qualifiers: Atrial fibrillation type: paroxysmal Qualified Code(s): I48.0 - Paroxysmal atrial fibrillation (6) DVT prophylaxis Current Visit: Yes Status: Acute Assessment and plan: Patient is on heparin drip. (7) Lung nodule seen on imaging study Current Visit: Yes Status: Acute Assessment and plan: Follow-up the imaging in 3 months per radiology recommendation - Time Spent With Patient Greater than 35 minutes - Subjective Interval history: Patient is a 76-year-old female admitted for shortness of breath and desaturation. Patient was found massive PE bilaterally. Past medical history is significant for cancer, hyperlipidemia and hypertension. Patient was seen and examined, she still need high-level oxygen to maintain oxygen saturation. She denies chest pain or shortness of breath. Vital signs are generally stable. CTA showed massive PE bilaterally with the signs of right ventricular strain. Cardio and pulmonary consult appreciated. Discussed with the pulmonology consult, will transfer patient to ICU for monitoring purposes. Will change Lovenox to heparin drip. We will hold blood pressure medication right now. Closely monitor vitals, which is stable now. - Constitutional Vitals: Temp Pulse Resp BP Pulse Ox 97.5 F L 64 20 117/79 94 L 09/23/16 15:29 09/23/16 15:29 09/23/16 15:29 09/23/16 10:58 09/23/16 15:29 General appearance: Present: cooperative, A&O X 3, pleasant, obese, answers questions appropriately - Head Head exam: Present: atraumatic, normocephalic - Eye Eye exam: Present: PERRL, conjuntiva pink, sclera anicteric Pupils: Present: PERRL - Neck Neck exam general surgery: Present: supple, trachea midline. Absent: lymphadenopathy - Respiratory Respiratory exam: Present: CTAB. Absent: accessory muscle use, rales, rhonchi, wheezes - Cardiovascular Cardiovascular exam: Present: RRR, +S1, +S2. Absent: diastolic murmur, gallop, rubs, systolic murmur - GI/Abdominal GI/Abdominal exam: Present: normal bowel sounds, soft, no peritoneal signs. Absent: distended, tenderness - Extremities Exam Extremities exam: Present: warm, radial pulses palpable and symetrical. Absent : calf tenderness, cyanotic, pedal edema - Neurological Exam Neurological exam: Present: CN II-XII intact, oriented X3, no focal deficits. Absent: pronater drift, facial droop, speech deficit - Skin Skin exam: Present: dry, intact Internal Medicine: Result - Labs CBC & Chem 7: 09/23/16 01:05 09/23/16 01:05 - ABG Interpretation ABG results: PT/INR, D-dimer PT 15.9 Seconds (9.4-12.1) H 09/22/16 12:55 - Impressions Impressions Chest CTA 09/23/16 11:30 IMPRESSION: 1. Extensive bilateral pulmonary emboli extending from the distal main pulmonary artery into the bilateral segmental branches. CT findings suggestive of right heart/ventricular strain. 2. A 4.2 cm ascending aortic aneurysm. 3. There are patchy areas of ground-glass attenuation in the left upper lobe, nonspecific and may be infectious or inflammatory in etiology. There is an indeterminate 5 mm mixed nodule in the left upper lobe. Recommend a short-term follow-up in 3 months given history of breast cancer. 4. Small hiatal hernia. Critical results were called by Dr. Tiffanie Malagon MD to Jeyson Zhang on 09/23/2016 at 12:41. D/ / 09/23/2016 12:51:17 Tiffanie Malagon MD / jimirter Interpreting Provider: Tiffanie Malagon MD Consult Discharge Plan - Plan Referrals: Gudelia Celis MD [Primary Care Provider] -
[2016-09-23 18:33] LABS: INR 1.5; Prothrombin Time 16.5 Seconds (9.4-12.1)
[2016-09-23 18:35] LABS: Hematocrit 40.9 % (35.3-44.9); Hemoglobin 13.2 g/dL (11.5-15.4); Immature Platelets 9.2 % (1.1-6.1); Mean Corpuscular HGB Conc 32.3 g/dL (31.6-35.5); Mean Corpuscular Hemoglobin 29.5 pg (28.0-33.3); Mean Corpuscular Volume 91.5 fL (83.0-100.0); Mean Platelet Volume 11.7 fL (9.4-12.4); Red Blood Count 4.47 M/mcL (3.82-4.97); Red Cell Distribution Width 14.3 % (11.5-14.5)
[2016-09-23] MEDS: Heparin 25,000 UNIT/500 ML D5W 25,000 UNIT/500 ML MLS IVC SCH (19:00)
--- NOTE | 2016-09-23 21:49 | Event Note ---
Date of Encounter: 09/23/16 Time of Encounter: 21:20 76 Y/F with bilateral PE and the venous doppler showed right popliteal DVT. Pulmonary physician Dr Polo recommends IVC filter placement (by Interventional Radiology) tonight and the message was relayed to me at 2030. I have discussed with Dr Mazariegos, who wanted me to discuss with Vascular surgery. I discussed with Dr Jernigan, who does not think IVC filter is indicated tonight, if the pt is on heparin infusion. I discussed with Dr Polo - who informs me that, he and the predatory animal hunter discussed and they both agree that the IVC filter need to be done tonight and if that can't be done here tonight, then the pt need to be transferred to [facility]. I have discussed with Interventional Radiologist Dr Mazariegos, who kindly agreed to do the procedure tonight.
[2016-09-23] MEDS ORDERED: Heparin 1,000 UNITS/500 mL NS 500 ML ONE (22:27)
--- NOTE | 2016-09-23 23:08 | IR Procedure Note ---
Date of procedure: 09/23/16 Consent Obtained: Written consent Timeout: Correct patient and procedure verified, Correct site verified, Time out performed, Skin prep completed Local anesthetic: Lidocaine 1% Indications: Submassive PE with right heart strain and DVT Procedure Performed: IVC filter and CVL placement Results/Findings: Celect filter and 7F 16cm CVL placement Complications: None; Tolerated procedure well (Monitor in ICU)
[2016-09-24 05:24] LABS: Basophils % 0.2 %; Eosinophils % 0.3 %; Hematocrit 36.5 % (35.3-44.9); Hemoglobin 12.2 g/dL (11.5-15.4); Immature Granulocytes % 0.6 % (0-4); Lymphocytes # 1.9 K/mcL (0.6-4.6); Lymphocytes % 19.2 %; Mean Corpuscular HGB Conc 33.4 g/dL (31.6-35.5); Mean Corpuscular Hemoglobin 30.6 pg (28.0-33.3); Mean Corpuscular Volume 91.5 fL (83.0-100.0); Mean Platelet Volume 11.7 fL (9.4-12.4); Monocytes # 0.7 K/mcL (0.0-1.3); Monocytes % 7.1 %; Nucleated Red Blood Cells 0.7 /100 WBC (0); Platelet Count 221 K/mcL (140-400); Red Blood Count 3.99 M/mcL (3.82-4.97); Red Cell Distribution Width 14.5 % (11.5-14.5); Segmented Neutrophils % 72.6 %
[2016-09-24 05:52] LABS: BUN/Creatinine Ratio 62 (6-26); Blood Urea Nitrogen 54 mg/dL (7-20); Calcium 8.1 mg/dL (8.6-10.8); Carbon Dioxide 24 mEq/L (19-29); Chloride 103 mEq/L (98-109); Glucose 124 mg/dL (70-99); Osmolality,Calculated 304 (280-300); Potassium 3.6 mEq/L (3.5-4.5); Sodium 139 mEq/L (136-145); eGFR For African Americans > 60 (> 60); eGFR For Non-African Americans > 60 (> 60)
[2016-09-24] MEDS: Aspirin Enteric Coated 81 MG Tablet PO SCH (07:50)
--- NOTE | 2016-09-24 09:41 | Pulmonology Progress Note ---
<Armando Polo W - Last Filed: 09/24/16 12:18> Assessment and Plan (1) Pulmonary embolism Current Visit: Yes Status: Acute Qualifiers: Pulmonary embolism type: other Chronicity: acute Acute cor pulmonale presence: without acute cor pulmonale Qualified Code(s): I26.99 - Other pulmonary embolism without acute cor pulmonale (2) Lung nodule < 6cm on CT Current Visit: Yes Status: Acute (3) Acute kidney injury Current Visit: Yes Status: Acute (4) Acute respiratory failure with hypoxia Current Visit: Yes Status: Acute Objective PUL Vital signs: Last Vital Signs Temp 98.2 F 09/24/16 08:18 Pulse 68 09/24/16 09:00 Resp 22 09/24/16 09:00 BP 126/74 09/24/16 09:00 Pulse Ox 93 L 09/24/16 09:00 Results - Laboratory Findings CBC and BMP: 09/24/16 05:00 09/24/16 05:00 PT/INR, D-dimer PT 16.5 Seconds (9.4-12.1) H 09/23/16 18:07 Abnormal lab findings: Abnormal lab results Nucleated RBCs/100 WBC 0.7 /100 WBC (0) H 09/24/16 05:00 Large Platelets Present (Not Present) A 09/23/16 01:05 Immature Plt Fraction 9.2 % (1.1-6.1) H 09/23/16 18:07 Polychromasia 1+ (Not Present) A 09/23/16 01:05 PT 16.5 Seconds (9.4-12.1) H 09/23/16 18:07 APTT 95.4 Seconds (26.0-36.0) H 09/24/16 06:40 BUN 54 mg/dL (7-20) H 09/24/16 05:00 BUN/Creatinine Ratio 62 (6-26) H 09/24/16 05:00 Glucose 124 mg/dL (70-99) H 09/24/16 05:00 POC Glucose 179 (58-89) H 09/23/16 18:54 Calculated Osmolality 304 (280-300) H 09/24/16 05:00 Calcium 8.1 mg/dL (8.6-10.8) L 09/24/16 05:00 Troponin I 0.26 ng/mL (0-0.03) H* 09/23/16 01:05 B-Natriuretic Peptide 1888 pg/mL (0-100) H 09/22/16 12:55 Albumin 3.2 g/dL (3.5-5.0) L 09/22/16 12:55 Globulin 4.6 g/dL (2.4-3.5) H 09/22/16 12:55 Albumin/Globulin Ratio 0.7 (1.1-2.2) L 09/22/16 12:55 Triglycerides 159 mg/dL (< 150) H 09/23/16 01:05 Cholesterol 215 mg/dL (< 200) H 09/23/16 01:05 LDL Cholesterol, Calc 151 mg/dL (0-99) H 09/23/16 01:05 VLDL Cholesterol, Calc 32 mg/dL (< 31) H 09/23/16 01:05 HDL Cholesterol 32 mg/dL (40-59) L 09/23/16 01:05 Cholesterol/HDL Ratio 6.7 (0-4.9) H 09/23/16 01:05 - Clinical Findings Intake & Output: Intake & Output 09/23/16 09/24/16 09/24/16 23:59 07:59 15:59 Intake Total 1168 / 1168 360 / 360 Output Total 300 / 300 50 / 50 Balance 868 / 868 310 / 310 Weight 112.4 kg Consult Discharge Plan - Plan Referrals: Gudelia Celis MD [Primary Care Provider] - - Attending Attestation I examined this patient and my medical decision-making was reviewed with the [employer]/PA/Advanced Practice Nurse/Resident Physician. I agree with the documented findings, disposition and treatment plan as described except to the extent set forth below. Patient seen and examined at bedside Labs, radiology, chart personally reviewed. All lines examined without evidence of infection. Impression: 1. Submassive PE with RV strain along with 2. Acute hypoxic Respiratory Failure 3. U/LE DVTs 4. Lung Nodule Plan: 1. Cont Anticoagulation; hold BB/antihypertensives (likely restart tomorrow); f/ u Pulmonary in 6 weeks with repeat ECHO. Suggest life-long anticoagulation 2. Wean Fio2 to keep O2 sat around 92-94% 3. S/p IVC filter cont anticoagulation 4. Outpatient Pulmonary F/u. Stable for transfer to [facility] <Catrachito Lyle - Last Filed: 09/24/16 14:06> Date of Encounter: 09/24/16 Time of Encounter: 09:41 Assessment and Plan (1) Pulmonary embolism, bilateral Current Visit: Yes Status: Acute Patient stable but guarded condition. Patient has submassive pulmonary embolism bilaterally. Associated Right lower extremity DVT and Left upper extremity SVT, cause of DVT's is unknown at this time. Mrs. Corral has a remote history of ovarian cancer in the late 80s. No recent chemotherapy or radiation. Patient denies traumatic event or known clotting disorders. Previous DVT with ovarian cancer. She was not on any anticoagulation at the time of this DVT. - Underwent IVC filter placement 09/23/2016 Plan: - Continue heparin drip. Will need further long-term anticoagulation. - Continue high flow oxygen, wean as tolerated. - Patient will require further evaluation for the source of her DVT and submassive PE. Suspicious for cancer undiagnosed. - Transfer to stepdown unit for continued inpatient care. (2) Atrial fibrillation Current Visit: Yes Status: Chronic New onset atrial fibrillation, no history of previous atrial fibrillation or cardiac arrhythmias. Patient was not on any anticoagulation prior to admission. Currently heart rhythm is normal sinus rhythm and rate. Likely secondary to sudden massive pulmonary embolism and right ventricular cardiac strain. Plan: - Continue telemetry monitoring, no rate control needs at this time. - Continue heparin drip - Home antihypertensives have been held with submassive pulmonary embolism. If blood pressure continues to remain stable may restart some of her blood pressure medications tomorrow. Qualifiers: Atrial fibrillation type: paroxysmal Qualified Code(s): I48.0 - Paroxysmal atrial fibrillation (3) NSTEMI (non-ST elevated myocardial infarction) Current Visit: Yes Status: Acute Patient presents with shortness of breath, elevated troponins at 0.23, 0.23, 0.26 that were suspicious for non-ST myocardial infarction. Echocardiogram demonstrated pulmonary vessel thrombus. Elevated troponins likely demonstrating myocardial strain secondary to a submassive pulmonary embolism and right ventricular enlargement. At this time not suspicious for coronary artery pathology requiring catheterization. Plan: - Continue heparin drip - Continue aspirin 81 mg by mouth daily - Continue rosuvastatin calcium 40 mg HS - Cardiology was consult that is following. (4) Acute kidney injury Current Visit: Yes Status: Acute Resolved. Patient presented with elevated creatinine at 1.25 with a baseline around 0.80. Patient tolerates by mouth intake and IV fluids have been discontinued. Plan: - ADINA resolved. - Recheck renal function with a.m. labs. Subjective Principal diagnosis: SOB Interval history: Mrs. Corral is a 76-year-old female has been seen and evaluated patient bedside this morning. She is awake alert and interactive and in no acute distress. She denies any discomfort pain, chest pain, palpitations, shortness of breath while on oxygen, abdominal pain, nausea vomiting diarrhea or constipation. In discussion of her past medical history she said that she had ovarian cancer in the mid 80s and 2 piece size lumps taken out of her breasts in the early s. She denies any recent chemotherapy or radiation therapy with her last treatments in the s. She denies any recent history of cancer or abnormal pathologic findings. She had a recent mammogram which she said was negative for any abnormalities. She denies any history of blood in her stool pencil thin stools, hemoptysis or blood in her urine. The onset of her shortness of breath started on Thursday while walking up her basement stairs. She denies any associated chest pain or discomfort with deep inspiration. At this time she denies any other discomforts or concerns. Objective PUL Vital signs: Last Vital Signs Temp 98.2 F 09/24/16 08:18 Pulse 68 09/24/16 09:00 Resp 22 09/24/16 09:00 BP 126/74 09/24/16 09:00 Pulse Ox 93 L 09/24/16 09:00 Gen. well-developed, well-nourished in no acute distress, alert oriented and interactive. HEENT: Normocephalic, atraumatic, pupils equal reactive, oral mucosa is moist, trachea midline. Pulmonary: Lungs are clear to auscultation in all lung ortiz. Respirations are appropriate, chest is symmetric bilateral correlating with a straight effort. Cardiac: Regular rate and rhythm no murmurs appreciated. Radial and posterior tibial pulses 2+ bilateral. Abdominal: Soft, positive bowel sounds, nontender to palpation. Extremities: Symmetric bilateral, patient is moving limbs spontaneously. No appreciated edema or erythema. Results - Laboratory Findings CBC and BMP: 09/24/16 05:00 09/24/16 05:00 PT/INR, D-dimer PT 16.5 Seconds (9.4-12.1) H 09/23/16 18:07 Abnormal lab findings: Abnormal lab results Nucleated RBCs/100 WBC 0.7 /100 WBC (0) H 09/24/16 05:00 Large Platelets Present (Not Present) A 09/23/16 01:05 Immature Plt Fraction 9.2 % (1.1-6.1) H 09/23/16 18:07 Polychromasia 1+ (Not Present) A 09/23/16 01:05 PT 16.5 Seconds (9.4-12.1) H 09/23/16 18:07 APTT 95.4 Seconds (26.0-36.0) H 09/24/16 06:40 BUN 54 mg/dL (7-20) H 09/24/16 05:00 BUN/Creatinine Ratio 62 (6-26) H 09/24/16 05:00 Glucose 124 mg/dL (70-99) H 09/24/16 05:00 POC Glucose 179 (58-89) H 09/23/16 18:54 Calculated Osmolality 304 (280-300) H 09/24/16 05:00 Calcium 8.1 mg/dL (8.6-10.8) L 09/24/16 05:00 Troponin I 0.26 ng/mL (0-0.03) H* 09/23/16 01:05 B-Natriuretic Peptide 1888 pg/mL (0-100) H 09/22/16 12:55 Albumin 3.2 g/dL (3.5-5.0) L 09/22/16 12:55 Globulin 4.6 g/dL (2.4-3.5) H 09/22/16 12:55 Albumin/Globulin Ratio 0.7 (1.1-2.2) L 09/22/16 12:55 Triglycerides 159 mg/dL (< 150) H 09/23/16 01:05 Cholesterol 215 mg/dL (< 200) H 09/23/16 01:05 LDL Cholesterol, Calc 151 mg/dL (0-99) H 09/23/16 01:05 VLDL Cholesterol, Calc 32 mg/dL (< 31) H 09/23/16 01:05 HDL Cholesterol 32 mg/dL (40-59) L 09/23/16 01:05 Cholesterol/HDL Ratio 6.7 (0-4.9) H 09/23/16 01:05 - Clinical Findings Intake & Output: Intake & Output 09/23/16 09/24/16 09/24/16 23:59 07:59 15:59 Intake Total 1168 / 1168 360 / 360 Output Total 300 / 300 50 / 50 Balance 868 / 868 310 / 310 Weight 112.4 kg
--- NOTE | 2016-09-24 09:46 | Cardiology Progress Note ---
Date of Encounter: 09/24/16 Time of Encounter: 08:00 Assessment and Plan (1) Pulmonary embolism Current Visit: Yes Status: Acute Per cardiology: -Shortness of breath for 3 days. Right sided shoulder blade pain. Currently not tachy, but was on arrival. Is requiring NC 10L high flow O2 (not on home O2). -Chest x-ray negative. -VQ perfusion scan with intermediate probability of PE, primarily of the left lung. -CT with bilateral extensive PE. -Management per primary service and pulmonary service. -On Heparin -Suspect PE may be contributing to elevated troponin. (ANDREW) Qualifiers: Pulmonary embolism type: other Chronicity: acute Acute cor pulmonale presence: without acute cor pulmonale Qualified Code(s): I26.99 - Other pulmonary embolism without acute cor pulmonale (2) Elevated troponin Current Visit: Yes Status: Acute Per cardiology: -Flat and adynamic troponins of 0.23, 0.23, and 0.26. -Elevated in the setting of PE and ADINA. -On heparin drip, asa, and nifedipine, and crestor. -Echo with LV with possible mild reduction in function, RV large and foreshortened, there is septal flatening in systole and diastole suggesting RV pressure and volume overload. Moderately severe tricuspid and pulmonic regurgitation. There is a long tubular somewhat mobile echo density in the pulmonary artery suggestive of a thrombus. The mid inferior septal, basal inferior septal, mid anterior lateral, basal anterior lateral, mid anterior septal, mid inferior lateral, basal anterior septal, and basal lateral doan are hypokinetic. -Suspect demand ischemia due to PE -Recommend medical management at this time. No cardiac rehab warranted. -No further inpatient recommendations. Cardiology will sign off. Follow up set up in cardiology office. (ANDREW) (3) Elevated brain natriuretic peptide (BNP) level Current Visit: Yes Status: Acute Per Cardiology: -BNP elevated in the 1800s. -Euvolemic on exam. -Chest x-ray with no acute findings. -Does not appear to be in overt heart failure. Previous EF on echo 60%, mild diastolic dysfunction, normal RV structure and function, trace TR. -Current echo with possible mild reduction in LV systolic function. -Suspect may be elevated due to RV strain from PE. -Will follow as outpatient. (ANDREW) (4) Acute kidney injury Current Visit: Yes Status: Acute Per cardiology: -Creatinine on admission 1.25. -Baseline 0.8. -Today creatinine 0.87. -Management per primary service. -May be contributing to elevated troponin. (ANDREW) Discussion w patient/family: The assessment and plan as outlined above was discussed with the patient who expressed understanding and agreement. All questions were answered. Thank you for involving us in the care of your patient. Please call with any questions. Patient seen and examined with ROBERT Strong Discussed and reviewed with . Subjective Principal diagnosis: Shortness of breath Interval history: Patient with shortness of breath. VQ in ER with intermediate PE. CHest CT with bilateral extensive PE. Cardiology was consulted for elevated troponin. Pateint denies chest pain. Patient is status post IVC filter and CVC placement last night. Patient remains chest pain free. (ANDREW) Objective Vital Signs, Last 4 Hours Temp Pulse Resp BP Pulse Ox 09/24/16 09:00 68 22 126/74 93 L 09/24/16 08:18 98.2 F 09/24/16 08:06 98.2 F 67 21 121/99 98 09/24/16 08:00 67 09/24/16 07:00 62 21 132/77 96 09/24/16 06:00 67 21 120/74 88 L General: Conversant, Other (Conversational dyspnea noted. ) HEENT: Atraumatic, Normocephaly, Mucus Membranes Moist Neck: No JVD, Normal carotid pulses Cardiac: Reg Rate and Rhythm, Normal S1 and S2, No Murmur Lungs: Normal Breath Sounds, No Wheeze, Rales, Rhonchi Neuro: Alert and responsive, No focal deficits noted Abdomen: Soft, Non-Tender Skin: No rashes noted on visualized skin Musculoskeletal: No Chest Wall Tenderness Extremities: No Clubbing, No Cyanosis, Normal Pulses, Other (Mild bilateral, non -pitting pedal edema. ) Results 09/24/16 05:00 09/24/16 05:00 Lab Results Impressions Guidance Needle Placement Ultrasound 09/23/16 00:00 IMPRESSION: 1. IVC has normal appearance, suitable for filter placement. 2. Infrarenal inferior vena cava filter placement as discussed above. 3. Central venous catheter placement as discussed above. D/ / Leif Mazariegos MD / Leif Mazariegos MD Interpreting Provider: Leif Mazariegos MD Filter Placement 09/23/16 00:00 IMPRESSION: 1. IVC has normal appearance, suitable for filter placement. 2. Infrarenal inferior vena cava filter placement as discussed above. 3. Central venous catheter placement as discussed above. D/ / Leif Mazariegos MD / Leif Mazariegos MD Interpreting Provider: Leif Mazariegos MD Insertion Non-Tunneled Catheter 09/23/16 00:00 IMPRESSION: 1. IVC has normal appearance, suitable for filter placement. 2. Infrarenal inferior vena cava filter placement as discussed above. 3. Central venous catheter placement as discussed above. D/ / Leif Mazariegos MD / Leif Mazariegos MD Interpreting Provider: Leif Mazariegos MD Chest CTA 09/23/16 11:30 IMPRESSION: 1. Extensive bilateral pulmonary emboli extending from the distal main pulmonary artery into the bilateral segmental branches. CT findings suggestive of right heart/ventricular strain. 2. A 4.2 cm ascending aortic aneurysm. 3. There are patchy areas of ground-glass attenuation in the left upper lobe, nonspecific and may be infectious or inflammatory in etiology. There is an indeterminate 5 mm mixed nodule in the left upper lobe. Recommend a short-term follow-up in 3 months given history of breast cancer. 4. Small hiatal hernia. Critical results were called by Dr. Tiffanie Malagon MD to Jeyson Zhang on 09/23/2016 at 12:41. D/ / 09/23/2016 12:51:17 Tiffanie Malagon MD / bcarter Interpreting Provider: Tiffanie Malagon MD Active Medications Acetaminophen (Tylenol) 650 mg PO Q6HR PRN PRN Reason: Mild Pain (1-3) Stop: 03/24/17 19:29 Aspirin (Aspirin Ec) 81 mg PO DAILY [facility] Stop: 03/25/17 10:01 Last Admin: 09/24/16 07:50 Dose: 81 mg Heparin Sodium (Porcine) (Heparin) 7,700 unit 70 unit/kg (7700 unit) IVP Q6HR PRN PRN Reason: SEE COMMENTS Stop: 03/25/17 16:50 Heparin Sodium (Porcine) (Heparin) 3,800 unit 35 unit/kg (3800 unit) IVP Q6H PRN PRN Reason: SEE COMMENTS Stop: 03/25/17 16:50 Heparin Sodium/Dextrose (Heparin 25,000 Unit/500 Ml D5w) 25,000 unit in 500 mls @ 30.744 mls/hr IVC .[id number] MARLEY; 14 UNIT/KG/HR PRN Reason: Protocol Stop: 03/25/17 17:01 Last Titration: 09/24/16 07:51 Dose: 10.15 unit/kg/hr, 22.3 mls/hr Sodium Chloride (0.9 % Sodium Chloride) 1,000 mls @ 60 mls/hr IVC .[id number] [facility] Stop: 03/25/17 17:46 Last Infusion: 09/24/16 07:20 Dose: 0 mls/hr Naloxone HCl (Narcan) 0.4 mg IVP Q2MIN PRN PRN Reason: Opioid Reversal Stop: 03/24/17 19:29 Nifedipine (Procardia Xl) 90 mg PO DAILY [facility] Stop: 03/25/17 09:01 Last Admin: 09/23/16 08:36 Dose: 90 mg Potassium Chloride (Potassium Chloride) 20 meq PO BID [facility] Stop: 03/25/17 09:01 Last Admin: 09/24/16 07:50 Dose: 20 meq Rosuvastatin Calcium (Crestor) 40 mg PO MO [facility] Stop: 03/25/17 09:01 Last Admin: 09/23/16 08:36 Dose: 40 mg Laboratory Tests 05/06/16 09/22/16 09/22/16 08:21 12:55 12:55 Creatinine 0.80 1.25 H Troponin I B-Natriuretic Peptide 1888 H 09/22/16 09/22/16 09/23/16 12:55 20:37 01:05 Creatinine Troponin I 0.23 H* 0.23 H* 0.26 H* B-Natriuretic Peptide 09/23/16 09/24/16 01:05 05:00 Creatinine 1.05 0.87 Troponin I B-Natriuretic Peptide - Imaging and Cardiology Chest Xray: report reviewed Echo: report reviewed Other Results: Chest CT and VQ scan reviewed. - EKG Interpretation EKG results cardiology: personally reviewed (ECG with sinus rhythm with PACs.), other (Telemetry reviewed with average heart rate 67. Occasional PVCs, frequent PACs noted.) Consult Discharge Plan - Plan Referrals: Gudelia Celis MD [Primary Care Provider] -
[2016-09-24] MEDS ORDERED: Acetaminophen 325 MG TABLET PO PRN (13:44)
[2016-09-24] MEDS ORDERED: Naloxone 0.4 MG/ML INJ IVP PRN (13:44)
[2016-09-24] MEDS ORDERED: *HR* Heparin 5,000 UNIT/ML VIAL IVP PRN ×2 (13:44)
[2016-09-24] MEDS: Heparin 25,000 UNIT/500 ML D5W 25,000 UNIT/500 ML MLS IVC SCH ×2 (14:15→15:08)
--- NOTE | 2016-09-24 17:05 | Internal Med Progress Note ---
Date of Encounter: 09/24/16 Time of Encounter: 17:05 - Assessment and plan (1) DVT (deep venous thrombosis) Current Visit: Yes Status: Acute Qualifiers: DVT location: lower extremity Affected thrombotic vein of extremity: unspecified lower extremity distal vein Laterality: unspecified laterality Chronicity: unspecified Qualified Code(s): I82.4Z9 - Acute embolism and thrombosis of unspecified deep veins of unspecified distal lower extremity (2) Acute respiratory failure with hypoxia Current Visit: Yes Status: Acute (3) Elevated troponin Current Visit: Yes Status: Acute (4) Lung nodule < 6cm on CT Current Visit: Yes Status: Acute (5) Pulmonary embolism, bilateral Current Visit: Yes Status: Acute - Time Spent With Patient Plan Appreciate cardiology and pulmonary input ,Continue heparin dripp. Monitor H/H. Cardiac ECHO reviewed , Discussed with patient and family at bed side , Dropp of H/H increase BUN R/O Gi bleeding , will recheck H/H and Stool for accult blood , in view of her nausea and epigastric discofort protonix bid and sucralfate 25 - 35 minutes - Constitutional Vitals: Temp Pulse Resp BP Pulse Ox 98.3 F 64 18 147/98 96 09/24/16 16:00 09/24/16 16:00 09/24/16 16:00 09/24/16 16:00 09/24/16 16:00 General appearance: Present: cooperative, pleasant, obese, answers questions appropriately - Head Head exam: Present: atraumatic, normocephalic - Neck Neck exam general surgery: Present: supple, trachea midline. Absent: lymphadenopathy - Respiratory Respiratory exam: Present: CTAB. Absent: accessory muscle use, rales, rhonchi, wheezes - Cardiovascular Cardiovascular exam: Present: RRR, +S1, +S2. Absent: diastolic murmur, gallop, rubs, systolic murmur - GI/Abdominal GI/Abdominal exam: Present: normal bowel sounds, soft, no peritoneal signs. Absent: distended, tenderness - Extremities Exam Extremities exam: Present: warm, radial pulses palpable and symetrical. Absent : cyanotic, pedal edema Internal Medicine: Result - Labs CBC & Chem 7: 09/24/16 05:00 09/24/16 05:00 Labs: Short CBC 09/23/16 09/24/16 Range/Units 18:07 05:00 WBC 9.3 9.6 (4.3-11.1) K/mcL Hgb 13.2 12.2 (11.5-15.4) g/dL Hct 40.9 36.5 (35.3-44.9) % Plt Count 248 221 (140-400) K/mcL Neutrophils # 7.0 (1.6-8.9) K/mcL BMP 09/24/16 05:00 Sodium 139 Potassium 3.6 Chloride 103 Carbon Dioxide 24 BUN 54 H Creatinine 0.87 Glucose 124 H Calcium 8.1 L - ABG Interpretation ABG results: PT/INR, D-dimer PT 16.5 Seconds (9.4-12.1) H 09/23/16 18:07 Consult Discharge Plan - Plan Referrals: Gudelia Celis MD [Primary Care Provider] -
--- NOTE | 2016-09-24 18:36 | Venous Imaging Report ---
LE Venous Duplex Patient Name:Clementina Corral Order Number:[id number] Procedure Date:09/23/2016 Date:9Age:76 yrs Gender:Female Location:[facility] Room #: 2NE27 Telecommunications Operator:Olena Parsons Referring MD:Luis Daniel Barraza DO,LALITHA,HAYDEN BALDERAS substance abuse therapist:Gudelia Celis MD Reading MD:Delgado Walker MD , FACS Primary Indications:Extensive PE Secondary Indications: Risk Factors Yes/No Hx of DVT Hx of Chemotherapy Impressions: Lower extremity abnormal deep exam: right popliteal and posterior tibial veins demonstrate acute thrombosis. Left lower extremity: normal superficial and deep exam. Recommendations: Test completed on 09/23/2016 at 5:21:00 pm. Critical findings reported to [facility] yasmine RN- in person at 6:00:00 pm on 09/23/2016 by Olena Parsons. Findings Venous Duplex Results: Right: There is an acute occlusive thrombus seen in the right popliteal. There is an acute occlusive thrombus seen in the right posterior tibial. Prior Study: No prior study available for comparison. Lower Extremity Venous Duplex Side Vein Compress Spontaneous Flow Augment Diameter (cm) Depth (cm) Right Distal Iliac Normal Yes Pulsatile Yes Right Common Femoral Normal Yes Pulsatile Yes Right Superficial Femoral Normal Yes Phasic Yes Right Popliteal None no Absent no Right Posterior Tibial None no Absent no Right Peroneal Normal yes Phasic yes Right Saphenofemoral Junction Normal Yes Phasic Yes Right Great Saphenous Normal Yes Phasic Yes Right Lesser Saphenous Normal Yes Phasic Yes Left Distal Iliac Normal Yes Pulsatile Yes Left Common Femoral Normal Yes Pulsatile Yes Left Superficial Femoral Normal Yes Phasic Yes Left Popliteal Normal Yes Phasic Yes Left Posterior Tibial Normal Yes Phasic Yes Left Peroneal Normal Yes Phasic Yes Left Saphenofemoral [place]unction Normal Yes Phasic Yes Left Great Saphenous Normal Yes Phasic Yes Left Lesser Saphenous Normal Yes Phasic Yes Updated by Delgado Walker MD, FACS on 09/24/2016 6:31:40 PM Delgado Walker MD electronically signed on 09/24/2016 6:33:02 PM with status of Final
--- NOTE | 2016-09-24 18:38 | Venous Imaging Report ---
UE Venous Duplex Patient Name:Clementina Corral Order Number:[id number] Procedure Date:09/23/2016 Date:9Age:76 yrs Gender:Female Location:[facility] Room #: 2NE27 Grain Inspector:Olena Parsons Referring MD:Luis Daniel Barraza DO,[facility],HAYDEN BALDERAS tool and die maker:Gudelia Celis MD Reading MD:Delgado Walker MD , FACS Primary Indications:Extensive PE Secondary Indications: Risk Factors Yes/No Hx of DVT Hx of Chemotherapy Impressions: Right upper extremity: normal superficial and deep exam. Upper extremity abnormal superficial exam: left Cephalic Upper Arm vein acute thrombosis. Left upper extremity: normal deep exam. Recommendations: Test completed on 09/23/2016 at 6:01:00 pm. Critical findings reported to [facility] RN- in person at 6:02:00 pm on 09/23/2016 by Olena Parsons. Findings Venous Duplex Results: Left: There is an acute partially occlusive thrombus seen in the left cephalic upper arm. Prior Study: No prior study available for comparison. Upper Extremity Venous Duplex Side Vein Compress Spontaneous Flow Augment Right Jugular Normal Yes Phasic Yes Right Subclavian Normal Yes Phasic Yes Right Axillary Normal Yes Phasic Yes Right Brachial Normal Yes Phasic Yes Right Cephalic Upper Arm Normal Yes Phasic Yes Right Cephalic Forearm Normal Yes Phasic Yes Right Basilic Normal Yes Phasic Yes Right Radial Normal Yes Phasic Yes Right Ulnar Normal Yes Phasic Yes Left Jugular Normal Yes Phasic Yes Left Subclavian Normal Yes Phasic Yes Left Axillary Normal Yes Phasic Yes Left Brachial Normal Yes Phasic Yes Left Cephalic Upper Arm Partial Yes Phasic Yes Left Cephalic Forearm Normal Yes Phasic Yes Left Basilic Normal Yes Phasic Yes Left Radial Normal Yes Phasic Yes Left Ulnar Normal Yes Phasic Yes Updated by Delgado Walker MD, FACS on 09/24/2016 6:35:34 PM Delgado Walker MD electronically signed on 09/24/2016 6:35:56 PM with status of Final
[2016-09-24] MEDS: Sucralfate 1 GM TABLET PO SCH ×2 (21:30→21:40)
[2016-09-24] MEDS: Pantoprazole 40 MG VIAL IVP SCH (21:31)
[2016-09-25 05:07] LABS: Basophils % 0.2 %; Eosinophils # 0.2 K/mcL (0.0-0.6); Eosinophils % 1.7 %; Hematocrit 36.2 % (35.3-44.9); Immature Granulocytes % 0.5 % (0-4); Lymphocytes # 1.9 K/mcL (0.6-4.6); Lymphocytes % 21.9 %; Mean Corpuscular HGB Conc 33.1 g/dL (31.6-35.5); Mean Corpuscular Hemoglobin 30.3 pg (28.0-33.3); Mean Corpuscular Volume 91.4 fL (83.0-100.0); Mean Platelet Volume 11.5 fL (9.4-12.4); Monocytes # 0.6 K/mcL (0.0-1.3); Monocytes % 7.3 %; Neutrophils # 5.9 K/mcL (1.6-8.9); Nucleated Red Blood Cells 0.3 /100 WBC (0); Platelet Count 220 K/mcL (140-400); Red Blood Count 3.96 M/mcL (3.82-4.97); Red Cell Distribution Width 14.4 % (11.5-14.5); Segmented Neutrophils % 68.4 %
[2016-09-25 05:18] LABS: Alanine Aminotransferase 15 Units/L (0-55); Albumin 2.6 g/dL (3.5-5.0); Albumin/Globulin Ratio 0.7 (1.1-2.2); Alkaline Phosphatase 88 Units/L (38-126); Aspartate Amino Transferase 13 Units/L (5-34); BUN/Creatinine Ratio 47 (6-26); Bilirubin,Total 0.7 mg/dL (0.2-1.2); Calcium 8.4 mg/dL (8.6-10.8); Carbon Dioxide 25 mEq/L (19-29); Chloride 105 mEq/L (98-109); Globulin 3.6 g/dL (2.4-3.5); Glucose 120 mg/dL (70-99); Osmolality,Calculated 298 (280-300); Potassium 3.8 mEq/L (3.5-4.5); Sodium 139 mEq/L (136-145); eGFR For African Americans > 60 (> 60); eGFR For Non-African Americans > 60 (> 60)
[2016-09-25 05:19] LABS: Blood Urea Nitrogen 37 mg/dL (7-20); Total Protein 6.2 g/dL (6.0-8.3)
[2016-09-25] MEDS: Pantoprazole 40 MG VIAL IVP SCH (05:40)
--- NOTE | 2016-09-25 06:49 | Pulmonology Progress Note ---
<Catrachito Lyle - Last Filed: 09/25/16 11:31> Date of Encounter: 09/25/16 Time of Encounter: 06:49 Assessment and Plan (1) Pulmonary embolism, bilateral Current Visit: Yes Status: Acute Patient stable but guarded condition. Patient has submassive pulmonary embolism bilaterally. Associated Right lower extremity DVT and Left upper extremity SVT, cause of DVT's is unknown at this time. Mrs. Corral has a remote history of ovarian cancer in the late 80s. No recent chemotherapy or radiation. Patient denies traumatic event or known clotting disorders. Previous DVT with ovarian cancer. She was not on any anticoagulation at the time of this DVT. - Underwent IVC filter placement 09/23/2016 - CTA abdomen/pelvis were nonrevealing for internal mass but did demonstrate cholelithiasis and 2 small hernias in the abdominal wall containing omental fat. Plan: - Continue heparin drip. Will need further long-term anticoagulation. - Continue high flow oxygen, wean as tolerated. - Patient will require further evaluation for the source of her DVT and submassive PE. Suspicious for cancer undiagnosed. - Consult Hematology. - Transfer to stepdown unit for continued inpatient care. (2) Atrial fibrillation Current Visit: Yes Status: Chronic New onset atrial fibrillation, no history of previous atrial fibrillation or cardiac arrhythmias. Patient was not on any anticoagulation prior to admission. Currently heart rhythm is normal sinus rhythm and rate. Likely secondary to sudden massive pulmonary embolism and right ventricular cardiac strain. Plan: - Continue telemetry monitoring, no rate control needs at this time. - Continue heparin drip - Home antihypertensives have been held with submassive pulmonary embolism. If blood pressure continues to remain stable may restart some of her blood pressure medications tomorrow. Qualifiers: Atrial fibrillation type: paroxysmal Qualified Code(s): I48.0 - Paroxysmal atrial fibrillation (3) NSTEMI (non-ST elevated myocardial infarction) Current Visit: Yes Status: Acute Patient presents with shortness of breath, elevated troponins at 0.23, 0.23, 0.26 that were suspicious for non-ST myocardial infarction. Echocardiogram demonstrated pulmonary vessel thrombus. Elevated troponins likely demonstrating myocardial strain secondary to a submassive pulmonary embolism and right ventricular enlargement. At this time not suspicious for coronary artery pathology requiring catheterization. Plan: - Continue heparin drip - Continue aspirin 81 mg by mouth daily - Continue rosuvastatin calcium 40 mg HS - Cardiology was consult that is following. (4) Acute kidney injury Current Visit: Yes Status: Resolved Resolved. Patient presented with elevated creatinine at 1.25 with a baseline around 0.80. Patient tolerates by mouth intake and IV fluids have been discontinued. Plan: - ADINA resolved. - Recheck renal function with a.m. labs. Subjective Principal diagnosis: SOB Interval history: Mrs. Corral is a 76-year-old female has been seen and evaluated patient bedside this morning. She is awake alert and interactive and in no acute distress. She denies any discomfort pain, chest pain, palpitations, shortness of breath while on oxygen, abdominal pain, nausea vomiting diarrhea or constipation. She has no complaints over night and denies any discomforts. She wishes to go home when stable enough. Objective PUL Vital signs: Last Vital Signs Temp 98.0 F 09/25/16 05:04 Pulse 74 09/25/16 05:17 Resp 20 09/25/16 05:00 BP 149/92 09/25/16 05:00 Pulse Ox 94 L 09/25/16 05:00 Gen. well-developed, well-nourished in no acute distress, alert oriented and interactive. HEENT: Normocephalic, atraumatic, pupils equal reactive, oral mucosa is moist, trachea midline. Pulmonary: Lungs are clear to auscultation in all lung ortiz. Respirations are appropriate, chest is symmetric bilateral correlating with a straight effort. Cardiac: Regular rate and rhythm no murmurs appreciated. Radial and posterior tibial pulses 2+ bilateral. Abdominal: Soft, positive bowel sounds, nontender to palpation. Extremities: Symmetric bilateral, patient is moving limbs spontaneously. No appreciated edema or erythema. Results - Laboratory Findings CBC and BMP: 09/25/16 04:50 09/25/16 04:50 PT/INR, D-dimer PT 16.5 Seconds (9.4-12.1) H 09/23/16 18:07 Abnormal lab findings: Abnormal lab results Nucleated RBCs/100 WBC 0.3 /100 WBC (0) H 09/25/16 04:50 Large Platelets Present (Not Present) A 09/23/16 01:05 Immature Plt Fraction 9.2 % (1.1-6.1) H 09/23/16 18:07 Polychromasia 1+ (Not Present) A 09/23/16 01:05 PT 16.5 Seconds (9.4-12.1) H 09/23/16 18:07 APTT 58.0 Seconds (26.0-36.0) H 09/24/16 21:38 BUN 37 mg/dL (7-20) H D 09/25/16 04:50 BUN/Creatinine Ratio 47 (6-26) H 09/25/16 04:50 Glucose 120 mg/dL (70-99) H 09/25/16 04:50 POC Glucose 179 (58-89) H 09/23/16 18:54 Calcium 8.4 mg/dL (8.6-10.8) L 09/25/16 04:50 Troponin I 0.26 ng/mL (0-0.03) H* 09/23/16 01:05 B-Natriuretic Peptide 1888 pg/mL (0-100) H 09/22/16 12:55 Albumin 2.6 g/dL (3.5-5.0) L 09/25/16 04:50 Globulin 3.6 g/dL (2.4-3.5) H 09/25/16 04:50 Albumin/Globulin Ratio 0.7 (1.1-2.2) L 09/25/16 04:50 Triglycerides 159 mg/dL (< 150) H 09/23/16 01:05 Cholesterol 215 mg/dL (< 200) H 09/23/16 01:05 LDL Cholesterol, Calc 151 mg/dL (0-99) H 09/23/16 01:05 VLDL Cholesterol, Calc 32 mg/dL (< 31) H 09/23/16 01:05 HDL Cholesterol 32 mg/dL (40-59) L 09/23/16 01:05 Cholesterol/HDL Ratio 6.7 (0-4.9) H 09/23/16 01:05 - Clinical Findings Intake & Output: Intake & Output 09/24/16 09/24/16 09/25/16 15:59 23:59 07:59 Intake Total 532 / 532 240 / 240 250 / 250 Output Total 150 / 150 250 / 250 200 / 200 Balance 382 / 382 -10 / -10 50 / 50 Weight 114.8 kg Consult Discharge Plan - Plan Referrals: Gudelia Celis MD [Primary Care Provider] - <Armando Polo - Last Filed: 09/25/16 13:16> Assessment and Plan (1) Pulmonary embolism Current Visit: Yes Status: Acute Qualifiers: Pulmonary embolism type: other Chronicity: acute Acute cor pulmonale presence: without acute cor pulmonale Qualified Code(s): I26.99 - Other pulmonary embolism without acute cor pulmonale (2) Lung nodule < 6cm on CT Current Visit: Yes Status: Acute (3) Acute kidney injury Current Visit: Yes Status: Acute (4) Acute respiratory failure with hypoxia Current Visit: Yes Status: Acute Objective PUL Vital signs: Last Vital Signs Temp 97.1 F L 09/25/16 11:30 Pulse 72 09/25/16 08:00 Resp 20 09/25/16 08:00 BP 136/79 09/25/16 08:00 Pulse Ox 94 L 09/25/16 08:00 Results - Laboratory Findings CBC and BMP: 09/25/16 04:50 09/25/16 04:50 PT/INR, D-dimer PT 16.5 Seconds (9.4-12.1) H 09/23/16 18:07 Abnormal lab findings: Abnormal lab results Nucleated RBCs/100 WBC 0.3 /100 WBC (0) H 09/25/16 04:50 Large Platelets Present (Not Present) A 09/23/16 01:05 Immature Plt Fraction 9.2 % (1.1-6.1) H 09/23/16 18:07 Polychromasia 1+ (Not Present) A 09/23/16 01:05 PT 16.5 Seconds (9.4-12.1) H 09/23/16 18:07 APTT 69.6 Seconds (26.0-36.0) H 09/25/16 07:00 BUN 37 mg/dL (7-20) H D 09/25/16 04:50 BUN/Creatinine Ratio 47 (6-26) H 09/25/16 04:50 Glucose 120 mg/dL (70-99) H 09/25/16 04:50 POC Glucose 179 (58-89) H 09/23/16 18:54 Calcium 8.4 mg/dL (8.6-10.8) L 09/25/16 04:50 Troponin I 0.26 ng/mL (0-0.03) H* 09/23/16 01:05 B-Natriuretic Peptide 1888 pg/mL (0-100) H 09/22/16 12:55 Albumin 2.6 g/dL (3.5-5.0) L 09/25/16 04:50 Globulin 3.6 g/dL (2.4-3.5) H 09/25/16 04:50 Albumin/Globulin Ratio 0.7 (1.1-2.2) L 09/25/16 04:50 Triglycerides 159 mg/dL (< 150) H 09/23/16 01:05 Cholesterol 215 mg/dL (< 200) H 09/23/16 01:05 LDL Cholesterol, Calc 151 mg/dL (0-99) H 09/23/16 01:05 VLDL Cholesterol, Calc 32 mg/dL (< 31) H 09/23/16 01:05 HDL Cholesterol 32 mg/dL (40-59) L 09/23/16 01:05 Cholesterol/HDL Ratio 6.7 (0-4.9) H 09/23/16 01:05 - Clinical Findings Intake & Output: Intake & Output 09/24/16 09/25/16 09/25/16 23:59 07:59 15:59 Intake Total 240 / 240 350 / 350 150 / 150 Output Total 250 / 250 300 / 300 200 / 200 Balance -10 / -10 50 / 50 -50 / -50 Weight 114.8 kg - Attending Attestation I examined this patient and my medical decision-making was reviewed with the SHIP KEEPER/PA/Advanced Practice Nurse/Resident Physician. I agree with the documented findings, disposition and treatment plan as described except to the extent set forth below. Impression: 1. Submassive PE with Right Heart Strain 2. History of Malignancy with new VTE 3. Afib 4. HTN 5. Lung Nodule Plan: 1. Stable Cont Heparin gtt f/u Outpatient with ECHO in 6 weeks 2. Heme/Onc consulted CT Abd/pelvis without clear evidence of new malignancy. 3. Restart Home BB 4. Cont to titrate to home BP regimen 5. Oupatient f/u
[2016-09-25] MEDS: Aspirin Enteric Coated 81 MG Tablet PO SCH (07:36)
[2016-09-25] MEDS: Sucralfate 1 GM TABLET PO SCH (07:36)
--- NOTE | 2016-09-25 09:19 | Internal Med Progress Note ---
<MaximLuz jett - Last Filed: 09/25/16 16:44> Date of Encounter: 09/25/16 Time of Encounter: 10:00 - Assessment and plan (1) Pulmonary embolism, bilateral Current Visit: Yes Status: Acute Assessment and plan: CTA from 09/23/16 showed extensive bilateral pulmonary emboli extending from distal main pulmonary artery into bilateral segmental branches, suggestive of right heart/ventricular strain, 4.2cm ascending aneurysm, patchy areas of ground glass attenuation. Venous imaging also shows left upper extremity thrombosis, acute thrombosis in right popliteal and posterior tibial acute thrombosis. Previous history of DVT in left arm after her hysterectomy. She also has hx of ovarian cancer in 1980s. s/p IVC filter placement. CT Abdomen/pelvis showed no intra abdominal or pelvic mass identified to suggest neoplasm. Showe d2 anterior midline periotneal wall hernias containing omental fat, and umbillical hernia. Plan: patient will need oysterman anticoagulation. Consult to counter caser regarding what anticoagulant they will pay for. in meantime, continue heparin consult to heme/onc for hypercoaguable state continue high flow oxygen (2) Atrial fibrillation Current Visit: Yes Status: Chronic Assessment and plan: New onset. Patient was not on anticoagulation prior to admission. Etiology likely secondary to PE Plan: telemetry, Heparin drip. Working with counter caser in regards to oysterman anticoagulation. Qualifiers: Atrial fibrillation type: paroxysmal Qualified Code(s): I48.0 - Paroxysmal atrial fibrillation (3) NSTEMI (non-ST elevated myocardial infarction) Current Visit: Yes Status: Acute Assessment and plan: Patient came in with SOB Echo on 09/23 showed thrombus in pulmonary artery. patient had elevated troponins upon admission, likely secondary to PE- Type 2 NSTEMI. Plan: continue heparin drip, ASA, statin, BB (4) Acute kidney injury Current Visit: Yes Status: Resolved Assessment and plan: resolved. Cr back to baseline. (5) HTN (hypertension) Current Visit: Yes Status: Acute Assessment and plan: continue home med Atenolol and monitor. Qualifiers: Hypertension type: essential hypertension Qualified Code(s): I10 - Essential (primary) hypertension (6) DVT prophylaxis Current Visit: Yes Status: Acute Assessment and plan: Patient is on heparin drip. - Constitutional Vitals: Temp Pulse Resp BP Pulse Ox 97.8 F 74 20 149/92 94 L 09/25/16 07:57 09/25/16 05:17 09/25/16 05:00 09/25/16 05:00 09/25/16 05:00 General appearance: Present: cooperative, pleasant, obese, answers questions appropriately Internal Medicine: Result - Labs CBC & Chem 7: 09/25/16 04:50 09/25/16 04:50 Labs: Short CBC 09/25/16 Range/Units 04:50 WBC 8.7 (4.3-11.1) K/mcL Hgb 12.0 (11.5-15.4) g/dL Hct 36.2 (35.3-44.9) % Plt Count 220 (140-400) K/mcL Neutrophils # 5.9 (1.6-8.9) K/mcL BMP 09/25/16 04:50 Sodium 139 Potassium 3.8 Chloride 105 Carbon Dioxide 25 BUN 37 H D Creatinine 0.79 Glucose 120 H Calcium 8.4 L Liver Function 09/25/16 Range/Units 04:50 Total Bilirubin 0.7 (0.2-1.2) mg/dL AST 13 (5-34) Units/L ALT 15 (0-55) Units/L Alkaline Phosphatase 88 (38-126) Units/L Albumin 2.6 L (3.5-5.0) g/dL - ABG Interpretation ABG results: PT/INR, D-dimer PT 16.5 Seconds (9.4-12.1) H 09/23/16 18:07 - Impressions Impressions Chest CTA 09/23/16 11:30 IMPRESSION: 1. Extensive bilateral pulmonary emboli extending from the distal main pulmonary artery into the bilateral segmental branches. CT findings suggestive of right heart/ventricular strain. 2. A 4.2 cm ascending aortic aneurysm. 3. There are patchy areas of ground-glass attenuation in the left upper lobe, nonspecific and may be infectious or inflammatory in etiology. There is an indeterminate 5 mm mixed nodule in the left upper lobe. Recommend a short-term follow-up in 3 months given history of breast cancer. 4. Small hiatal hernia. Critical results were called by Dr. Tiffanie Malagon MD to Jeyson Zhang on 09/23/2016 at 12:41. D/ / 09/23/2016 12:51:17 Tiffanie Malagon MD / bcarter Interpreting Provider: Tiffanie Malagon MD Consult Discharge Plan - Plan Referrals: Gudelia Celis MD [Primary Care Provider] - <Carmelo Anthony - Last Filed: 09/25/16 17:11> - Constitutional Vitals: Temp Pulse Resp BP Pulse Ox 97.6 F 61 16 121/78 92 L 09/25/16 16:11 09/25/16 16:11 09/25/16 16:11 09/25/16 16:11 09/25/16 16:11 Internal Medicine: Result - Labs CBC & Chem 7: 09/25/16 04:50 09/25/16 04:50 Labs: Short CBC 09/25/16 Range/Units 04:50 WBC 8.7 (4.3-11.1) K/mcL Hgb 12.0 (11.5-15.4) g/dL Hct 36.2 (35.3-44.9) % Plt Count 220 (140-400) K/mcL Neutrophils # 5.9 (1.6-8.9) K/mcL BMP 09/25/16 04:50 Sodium 139 Potassium 3.8 Chloride 105 Carbon Dioxide 25 BUN 37 H D Creatinine 0.79 Glucose 120 H Calcium 8.4 L Liver Function 09/25/16 Range/Units 04:50 Total Bilirubin 0.7 (0.2-1.2) mg/dL AST 13 (5-34) Units/L ALT 15 (0-55) Units/L Alkaline Phosphatase 88 (38-126) Units/L Albumin 2.6 L (3.5-5.0) g/dL - ABG Interpretation ABG results: PT/INR, D-dimer PT 16.5 Seconds (9.4-12.1) H 09/23/16 18:07 - Impressions Impressions Chest CTA 09/23/16 11:30 IMPRESSION: 1. Extensive bilateral pulmonary emboli extending from the distal main pulmonary artery into the bilateral segmental branches. CT findings suggestive of right heart/ventricular strain. 2. A 4.2 cm ascending aortic aneurysm. 3. There are patchy areas of ground-glass attenuation in the left upper lobe, nonspecific and may be infectious or inflammatory in etiology. There is an indeterminate 5 mm mixed nodule in the left upper lobe. Recommend a short-term follow-up in 3 months given history of breast cancer. 4. Small hiatal hernia. Critical results were called by Dr. Tiffanie Malagon MD to Jeyson Zhang on 09/23/2016 at 12:41. D/ / 09/23/2016 12:51:17 Tiffanie Malagon MD / bcartlis Interpreting Provider: Tiffanie Malagon MD Abdomen/Pelvis CT 09/25/16 07:56 IMPRESSION: Again noted are bilateral basilar pulmonary emboli, as seen on the recent CTA of the chest on 09/23/2016. No intra-abdominal or pelvic mass is identified to suggest a definite neoplastic process. The patient is status post hysterectomy. Cholelithiasis. There are 2 anterior midline peritoneal wall hernias which contain omental fat. No bowel herniation. Small umbilical hernia is also noted which contains fat. D/ / Arthur Mcclellan MD / Arthur Mcclellan MD Interpreting Provider: Arthur Mcclellan MD - Attending Attestation 76 Y/O F with PMH of HTN, HLD, Obesity, Remote hx of Ovarian CA She was admitted 09/22 for management of aute hypoxemic respiratory failure secondary to sub-massive pulmonary embolism with right heart strain, Elevated troponins from demand ischemia, newly diagnosed Atrial fibrillation and ADINA. She has a hx of DVTs in the past and new DVTs in this admission RLE She is hemodynamically stable and has been on heparin drip She is seen at bedside, denies new complains Physical Exam: VSS, saturating 95% on supplemental O2 5L, BP and HR W NL. Chest is CTAB heart S1, S2, irregular, RLE slightly more swollen than the left. No pedal edema Labs and Imaging reviewed. Abd-Pelvis CT today with no evidence of malignancy, subcm pulmonary nodule, Bilateral PE on CTA, ECHO LV with possible mild reduction in function, RV large and foreshortened, there is septal flattening in systole and diastole suggesting RV pressure and volume overload. Moderately severe tricuspid and pulmonic regurgitation. There is a long tubular somewhat mobile echo density in the pulmonary artery suggestive of a thrombus. The mid inferior septal, basal inferior septal, mid anterior lateral, basal anterior lateral, mid anterior septal, mid inferior lateral, basal anterior septal, and basal lateral doan are hypokinetic. Patient is stable to transfer to SDU, continue heparin drip, bridge to oral anticoagulants once insurance approves, start home dose of atenolol only for now , continue to monitor PTT. Continuous pulse ox and telemetry. Coagulopathy work up will not exchange underwriting consultant. No current evidence of CA. Rest of details as in Residents documentation High risk patient due to heparin drip which needs close monitoring for toxicity , sub-massive PE with right heart strain at risk for cardio-pulmonary compromise
[2016-09-25] MEDS: Heparin 25,000 UNIT/500 ML D5W 25,000 UNIT/500 ML MLS IVC SCH (10:29)
[2016-09-26 04:53] LABS: Basophils % 0.1 %; Eosinophils # 0.1 K/mcL (0.0-0.6); Hematocrit 35.4 % (35.3-44.9); Hemoglobin 11.5 g/dL (11.5-15.4); Immature Granulocytes % 0.5 % (0-4); Lymphocytes % 25.7 %; Mean Corpuscular HGB Conc 32.5 g/dL (31.6-35.5); Mean Corpuscular Hemoglobin 29.7 pg (28.0-33.3); Mean Corpuscular Volume 91.5 fL (83.0-100.0); Mean Platelet Volume 11.3 fL (9.4-12.4); Monocytes # 0.6 K/mcL (0.0-1.3); Monocytes % 7.2 %; Neutrophils # 5.2 K/mcL (1.6-8.9); Nucleated Red Blood Cells 0.5 /100 WBC (0); Platelet Count 217 K/mcL (140-400); Red Blood Count 3.87 M/mcL (3.82-4.97); Red Cell Distribution Width 14.7 % (11.5-14.5); Segmented Neutrophils % 65.5 %
[2016-09-26 05:01] LABS: BUN/Creatinine Ratio 37 (6-26); Blood Urea Nitrogen 31 mg/dL (7-20); Calcium 8.3 mg/dL (8.6-10.8); Carbon Dioxide 23 mEq/L (19-29); Chloride 105 mEq/L (98-109); Glucose 113 mg/dL (70-99); Osmolality,Calculated 293 (280-300); Potassium 4.5 mEq/L (3.5-4.5); Sodium 138 mEq/L (136-145); eGFR For African Americans > 60 (> 60); eGFR For Non-African Americans > 60 (> 60)
--- NOTE | 2016-09-26 06:05 | Oncology Inp Consult Note ---
Date of Encounter: 09/26/16 Time of Encounter: 07:54 - Data of Consult Patient: new to practice Consult date: 09/26/16 Requesting Physician: Carmelo Anthony MD Primary Care Provider: Gudelia [facility] - Consult Narrative Reason for consult: Suspected hypercoagulable state History of present illness: Ms. Corral is a 76 year old seen in consultation for newly diagnosed PE. Patient presented with progressive dyspnea and Chest CT angiogram 09/23/16 showed extensive bilateral pulmonary emboli involving the distal main pulmonary artery into the bilateral segmental branches. She is currently on anticoagulation with heparin for her new clot. Oncology is consulted re: evaluation and management of her newly diagnosed DVT. Patient seen and examined at bedside. Chart reviewed for details of ongoing care by hospital team which is much appreciated. She report prior diagnosis of DVT right upper extremity after resection of Ovarian Ca [address]ariusz Culp in [place]. Received 3 mths of anticoagulation with Coumadin. For her Ovarian cancer, she reports receiving adjuvant chemotherapy after presumed JEREMIAH/BSO for about 1 yr and was discharged from [facility]. Onc surveillance after 10 yrs of follow-up. I do not have the records but her detailed account of her oncologic Hx seem very reliable. No findings on chest, abdomen or pelvis or abdomen imaging to suggest ovarian cancer recurrence. She is doing well and tolerating anticoagulation well with no unusual side effects. Rest of past medical, surgical, family, social history detailed below and verified with patient today. Review of systems: 12 point review of systems performed with patient and positive findings noted in history of present illness. All other systems are negative: Physical exam: Vital Signs Temp 97.7 F 09/26/16 04:17 Pulse 59 09/26/16 04:17 Resp 16 09/26/16 04:17 BP 117/68 09/26/16 04:17 Pulse Ox 90 L 09/26/16 04:17 GENERAL: Alert and oriented, obese appearing. Mental Status: Affect appropriate for circumstances HEENT: Sclerae anicteric. No mucositis or thrush. No other oral or pharyngeal lesions or erythema. Skin: No rashes or petechiae. No evidence of skin malignancy Lymph nodes: No cervical, supraclavicular, axillary, or inguinal adenopathy. Lungs: Clear to auscultation bilaterally. Clear to percussion bilaterally. Cardiovascular: Regular rate and rhythm. No gallops, murmurs, or rubs. Abdomen: Soft, nontender; No organomegaly or masses palpable. Extremities: No edema. No calf swelling or tenderness. No joint deformity. Neurologic: Alert, normal gait; no focal weakness or sensory abnormalities. Results: Laboratory Last Values WBC 7.9 K/mcL (4.3-11.1) 09/26/16 04:15 RBC 3.87 M/mcL (3.82-4.97) 09/26/16 04:15 Hgb 11.5 g/dL (11.5-15.4) 09/26/16 04:15 Hct 35.4 % (35.3-44.9) 09/26/16 04:15 MCV 91.5 fL (83.0-100.0) 09/26/16 04:15 MCH 29.7 pg (28.0-33.3) 09/26/16 04:15 MCHC 32.5 g/dL (31.6-35.5) 09/26/16 04:15 RDW 14.7 % (11.5-14.5) H 09/26/16 04:15 Plt Count 217 K/mcL (140-400) 09/26/16 04:15 MPV 11.3 fL (9.4-12.4) 09/26/16 04:15 Immature Gran % 0.5 % (0-4) 09/26/16 04:15 Seg Neutrophils % 65.5 % 09/26/16 04:15 Lymphocytes % 25.7 % 09/26/16 04:15 Monocytes % 7.2 % 09/26/16 04:15 Eosinophils % 1.0 % 09/26/16 04:15 Basophils % 0.1 % 09/26/16 04:15 Neutrophils # 5.2 K/mcL (1.6-8.9) 09/26/16 04:15 Lymphocytes # 2.0 K/mcL (0.6-4.6) 09/26/16 04:15 Monocytes # 0.6 K/mcL (0.0-1.3) 09/26/16 04:15 Eosinophils # 0.1 K/mcL (0.0-0.6) 09/26/16 04:15 Basophils # 0.0 K/mcL (0.0-0.2) 09/26/16 04:15 Nucleated RBCs/100 WBC 0.5 /100 WBC (0) H 09/26/16 04:15 Platelet Estimate Normal (Normal) 09/23/16 01:05 Large Platelets Present (Not Present) A 09/23/16 01:05 Immature Plt Fraction 9.2 % (1.1-6.1) H 09/23/16 18:07 Polychromasia 1+ (Not Present) A 09/23/16 01:05 PT 16.5 Seconds (9.4-12.1) H 09/23/16 18:07 INR 1.5 09/23/16 18:07 APTT 67.4 Seconds (26.0-36.0) H 09/25/16 13:40 Sodium 138 mEq/L (136-145) 09/26/16 04:15 Potassium 4.5 mEq/L (3.5-4.5) 09/26/16 04:15 Chloride 105 mEq/L (98-109) 09/26/16 04:15 Carbon Dioxide 23 mEq/L (19-29) 09/26/16 04:15 BUN 31 mg/dL (7-20) H 09/26/16 04:15 Creatinine 0.84 mg/dL (0.57-1.11) 09/26/16 04:15 Est GFR ( Amer) > 60 (> 60) 09/26/16 04:15 Est GFR (Non-Af Amer) > 60 (> 60) 09/26/16 04:15 BUN/Creatinine Ratio 37 (6-26) H 09/26/16 04:15 Glucose 113 mg/dL (70-99) H 09/26/16 04:15 POC Glucose 179 (58-89) H 09/23/16 18:54 Calculated Osmolality 293 (280-300) 09/26/16 04:15 Calcium 8.3 mg/dL (8.6-10.8) L 09/26/16 04:15 Total Bilirubin 0.7 mg/dL (0.2-1.2) 09/25/16 04:50 Direct Bilirubin 0.3 mg/dL (0.0-0.5) 09/22/16 12:55 Indirect Bilirubin 0.6 mg/dL (0.0-1.2) 09/22/16 12:55 AST 13 Units/L (5-34) 09/25/16 04:50 ALT 15 Units/L (0-55) 09/25/16 04:50 Alkaline Phosphatase 88 Units/L (38-126) 09/25/16 04:50 Troponin I 0.26 ng/mL (0-0.03) H* 09/23/16 01:05 B-Natriuretic Peptide 1888 pg/mL (0-100) H 09/22/16 12:55 Serum Total Protein 6.2 g/dL (6.0-8.3) D 09/25/16 04:50 Albumin 2.6 g/dL (3.5-5.0) L 09/25/16 04:50 Globulin 3.6 g/dL (2.4-3.5) H 09/25/16 04:50 Albumin/Globulin Ratio 0.7 (1.1-2.2) L 09/25/16 04:50 Triglycerides 159 mg/dL (< 150) H 09/23/16 01:05 Cholesterol 215 mg/dL (< 200) H 09/23/16 01:05 LDL Cholesterol, Calc 151 mg/dL (0-99) H 09/23/16 01:05 VLDL Cholesterol, Calc 32 mg/dL (< 31) H 09/23/16 01:05 HDL Cholesterol 32 mg/dL (40-59) L 09/23/16 01:05 Cholesterol/HDL Ratio 6.7 (0-4.9) H 09/23/16 01:05 Lipase 22 Units/L (8-78) 09/22/16 12:55 Radiographic studies: I personally reviewed and interpreted patient's most recent imaging studies dated [default value]. I discussed the findings with the patient today. Chest X-Ray 09/22/16 12:34 IMPRESSION: No acute abnormality. D/ / Greyson Huynh MD / Greyson Huynh MD Interpreting Provider: Greyson Huynh MD Pulmonary Perfusion Imaging 09/22/16 15:03 IMPRESSION: Intermediate probability of pulmonary embolus, primarily on the left. If there is strong clinical concern for pulmonary emboli, Consider chest CTPA. D/ / Terrance Salcido MD / Terrance Salcido MD Interpreting Provider: Terrance Salcido MD Guidance Needle Placement Ultrasound 09/23/16 00:00 IMPRESSION: 1. IVC has normal appearance, suitable for filter placement. 2. Infrarenal inferior vena cava filter placement as discussed above. 3. Central venous catheter placement as discussed above. D/ / Leif Mazariegos MD / Leif Mazariegos MD Interpreting Provider: Leif Mazariegos MD Filter Placement 09/23/16 00:00 IMPRESSION: 1. IVC has normal appearance, suitable for filter placement. 2. Infrarenal inferior vena cava filter placement as discussed above. 3. Central venous catheter placement as discussed above. D/ / Leif Mazariegos MD / Leif Mazariegos MD Interpreting Provider: Leif Mazariegos MD Insertion Non-Tunneled Catheter 09/23/16 00:00 IMPRESSION: 1. IVC has normal appearance, suitable for filter placement. 2. Infrarenal inferior vena cava filter placement as discussed above. 3. Central venous catheter placement as discussed above. D/ / Leif Mazariegos MD / Leif Mazariegos MD Interpreting Provider: Leif Mazariegos MD Chest CTA 09/23/16 11:30 IMPRESSION: 1. Extensive bilateral pulmonary emboli extending from the distal main pulmonary artery into the bilateral segmental branches. CT findings suggestive of right heart/ventricular strain. 2. A 4.2 cm ascending aortic aneurysm. 3. There are patchy areas of ground-glass attenuation in the left upper lobe, nonspecific and may be infectious or inflammatory in etiology. There is an indeterminate 5 mm mixed nodule in the left upper lobe. Recommend a short-term follow-up in 3 months given history of breast cancer. 4. Small hiatal hernia. Critical results were called by Dr. Tiffanie Malagon MD to Jeyson Vicente on 09/23/2016 at 12:41. D/ / 09/23/2016 12:51:17 Tiffanie Malagon MD / [email or web address] Interpreting Provider: Tiffanie Malagon MD Abdomen/Pelvis CT 09/25/16 07:56 IMPRESSION: Again noted are bilateral basilar pulmonary emboli, as seen on the recent CTA of the chest on 09/23/2016. No intra-abdominal or pelvic mass is identified to suggest a definite neoplastic process. The patient is status post hysterectomy. Cholelithiasis. There are 2 anterior midline peritoneal wall hernias which contain omental fat. No bowel herniation. Small umbilical hernia is also noted which contains fat. D/ / Arthur Mcclellan MD / Arthur Mcclellan MD Interpreting Provider: Arthur Mcclellan MD Impression/recommendations: Acute PE: Unclear provoking factor. I'm not sure if there is contribution from her remotely treated ovarian cancer although her most recent imaging does not show any radial graphic abdomen process concerning for malignancy. In any event, she will need workup evaluation directed possibility of an underlying hypercoagulable state. I agree with ongoing anticoagulation as you're doing. Since she is doing well presently, I think she can be slowly transitioned to a more long-term follow-up anticoagulation. We'll recommend to give her a dose of low molecular weight heparin and stop heparin drip one hour afterwards. She can be continued on subcutaneous Lovenox twice a day until until we are able to figure out appropriate long-term R anticoagulant strategy. As for an anticoagulation, I think she will be appropriate for one of several available options including Coumadin versus per Rivaroxaban versus Pradaxa versus Eliquis depending on patient preference and coverage situation. Suspected hypercoagulable state: She will need workup antibody for possible underlying hypercoagulable state. Recommend: Factor V Leiden and prothrombin gene mutation analysis. D-dimer to establish baseline for future comparison. Normalized d-dimer may indicate low recurrence risk for VTE if there is consideration for discontinuing anticoagulation in the future. Unable to complete rest of thrombophilia studies due to ongoing anticoagulation in recent clot. If there is consideration to discontinue anticoagulation in the future, we'll complete rest of her thrombophilia evaluation after interrupting her anticoagulation. Of course this can be completed as an outpatient basis. History of ovarian cancer: No evidence that her remotely treated ovarian cancer is contributed to her current presentation. Recommend to check tumor marker CA-125 for further evaluation. Lung nodule: She has an indeterminate, subcentimeter left upper lobe nodule. Appreciate input from pulmonary. I think is reasonable to repeat her lung imaging about a month for monitoring and also to determine a residual clot burden. Once patient is medically optimal, she can be discharged and will arrange for outpatient follow-up to discuss results of pending studies and for further management of her anticoagulation. We'll follow the patient along side you during this hospitalization but please do not hesitate to call regarding interval hematologic questions as they arise. Thank you for your excellent ongoing care for allowing us to see her while in- house. This report was created using voice recognition software and may contain errors. It was signed but not edited to expedite communication. Past Med Surg Social Fam HX - Past Medical History Medical history: cancer, hyperlipidemia, hypertension Psychiatric history: no psych history - Social History Smoking Status: Never smoker Smokeless Tobacco Status: No Alcohol use: none Drug use: none Medications and Allergies Atenolol [Tenormin] 50 mg PO BID 09/22/16 [History] Calcium Carbonate/Vitamin D3 [Calcium 600-Vit D3 200 Tablet] 1 each PO DAILY 01/03 [History] Diclofenac Sodium [Voltaren] 2 gm TP QID PRN 09/22/16 [History] Hydrochlorothiazide 25 mg PO BID 09/22/16 [History] NIFEdipine [Nifedipine ER] 90 mg PO DAILY 09/22/16 [History] Manns Choice-3S/Dha/Epa/Fish Oil [Fish Oil 1,200 mg Softgel] 1 each PO DAILY 09/22/16 [ History] Potassium Chloride [K-Tab ER] 20 meq PO BID 09/22/16 [History] Rosuvastatin [Crestor] 40 mg PO MO 09/22/16 [History] Allergies atorvastatin [From Lipitor] Adverse Reaction (Verified 09/22/16 13:08) Muscle Pain rosuvastatin [From Crestor] Adverse Reaction (Verified 09/22/16 17:08) Muscle Pain Patient states she does take this medication once weekly, however she cannot take daily. Oncology - Exam - Constitutional Vitals: Temp Pulse Resp BP Pulse Ox 97.7 F 59 16 117/68 90 L 09/26/16 04:17 09/26/16 04:17 09/26/16 04:17 09/26/16 04:17 09/26/16 04:17 Oncology - Results - Labs Labs: Short CBC 09/26/16 Range/Units 04:15 WBC 7.9 (4.3-11.1) K/mcL Hgb 11.5 (11.5-15.4) g/dL Hct 35.4 (35.3-44.9) % Plt Count 217 (140-400) K/mcL Neutrophils # 5.2 (1.6-8.9) K/mcL BMP 09/26/16 04:15 Sodium 138 Potassium 4.5 Chloride 105 Carbon Dioxide 23 BUN 31 H Creatinine 0.84 Glucose 113 H Calcium 8.3 L Consult Discharge Plan - Plan Referrals: Gudelia Celis MD [Primary Care Provider] - 10/03/16 2:00 pm
[2016-09-26] MEDS: Pantoprazole 40 MG VIAL IVP SCH (10:10)
[2016-09-26] MEDS: Aspirin Enteric Coated 81 MG Tablet PO SCH (10:10)
--- NOTE | 2016-09-26 10:12 | Internal Med Progress Note ---
<Carmelo Anthony T - Last Filed: 09/26/16 14:28> - Constitutional Vitals: Temp Pulse Resp BP Pulse Ox 97.4 F L 48 16 111/70 96 09/26/16 11:25 09/26/16 11:25 09/26/16 11:25 09/26/16 11:25 09/26/16 11:25 Internal Medicine: Result - Labs CBC & Chem 7: 09/26/16 04:15 09/26/16 04:15 Labs: Short CBC 09/26/16 Range/Units 04:15 WBC 7.9 (4.3-11.1) K/mcL Hgb 11.5 (11.5-15.4) g/dL Hct 35.4 (35.3-44.9) % Plt Count 217 (140-400) K/mcL Neutrophils # 5.2 (1.6-8.9) K/mcL BMP 09/26/16 04:15 Sodium 138 Potassium 4.5 Chloride 105 Carbon Dioxide 23 BUN 31 H Creatinine 0.84 Glucose 113 H Calcium 8.3 L - ABG Interpretation ABG results: PT/INR, D-dimer PT 16.5 Seconds (9.4-12.1) H 09/23/16 18:07 Consult Discharge Plan - Plan Referrals: Gudelia Celis MD [Primary Care Provider] - 10/03/16 2:00 pm - Attending Attestation 76 Y/O F with PMH of HTN, HLD, Obesity, Remote hx of Ovarian CA She was admitted 09/22 for management of acute hypoxemic respiratory failure secondary to sub-massive pulmonary embolism with right heart strain, Elevated troponins from demand ischemia, newly diagnosed Atrial fibrillation and ADINA. She has a hx of DVTs in the past and new DVTs in this admission RLE She is hemodynamically stable and has been on heparin drip She is seen at bedside with her spouse, denies new complains Physical Exam: VSS, saturating 95% on supplemental O2 5L, BP and HR W NL. Chest is CTAB heart S1, S2, irregular, RLE slightly more swollen than the left. No pedal edema Labs and Imaging reviewed. Abd-Pelvis CT today with no evidence of malignancy, subcm pulmonary nodule, Bilateral PE on CTA, ECHO LV with possible mild reduction in function, RV large and foreshortened, there is septal flattening in systole and diastole suggesting RV pressure and volume overload. Moderately severe tricuspid and pulmonic regurgitation. There is a long tubular somewhat mobile echo density in the pulmonary artery suggestive of a thrombus. The mid inferior septal, basal inferior septal, mid anterior lateral, basal anterior lateral, mid anterior septal, mid inferior lateral, basal anterior septal, and basal lateral doan are hypokinetic. Decrease atenolol to 25mg po bid due to low HR< BP low normal, continue to monitor Switch heparin to Eliquis po per SW, patient states she can afford the co-pay for that Assess for O2 requirement PT/OT eval-patient has been in bed since admission Oncology input appreciated High risk patient due to heparin drip which needs close monitoring for toxicity , severe hypoxic respiratory failure secondary to sub-massive PE with right heart strain at risk for cardio-pulmonary compromise. Continue telemetry and continuous pulse oximetry <Luz Edwards - Last Filed: 09/26/16 14:47> Date of Encounter: 09/26/16 Time of Encounter: 09:00 - Assessment and plan (1) Pulmonary embolism, bilateral Current Visit: Yes Status: Acute Assessment and plan: CTA from 09/23/16 showed extensive bilateral pulmonary emboli extending from distal main pulmonary artery into bilateral segmental branches, suggestive of right heart/ventricular strain, 4.2cm ascending aneurysm, patchy areas of ground glass attenuation. Venous imaging also shows left upper extremity thrombosis, acute thrombosis in right popliteal and posterior tibial acute thrombosis. Previous history of DVT in left arm after her hysterectomy. She also has hx of ovarian cancer in 1980s. s/p IVC filter placement. CT Abdomen/pelvis showed no intra abdominal or pelvic mass identified to suggest neoplasm. Showe d2 anterior midline periotneal wall hernias containing omental fat, and umbillical hernia. Plan: stopped Heparin. started Eliquis 10mg PO BID x7 days, then start 5mg PO daily. consult to heme/onc for hypercoaguable state Patient requiring 4LNC oxygen currently, will attempt to qualify her for home oxygen before discharge. (2) Atrial fibrillation Current Visit: Yes Status: Chronic Assessment and plan: New onset. Patient was not on anticoagulation prior to admission. Etiology likely secondary to PE Plan: telemetry, Heparin drip. Working with case investigator in regards to buttermaker anticoagulation, depending on what her insurance will pay for. Qualifiers: Atrial fibrillation type: paroxysmal Qualified Code(s): I48.0 - Paroxysmal atrial fibrillation (3) NSTEMI (non-ST elevated myocardial infarction) Current Visit: Yes Status: Acute Assessment and plan: Patient came in with SOB, found to have bilateral PE. Echo on 09/23 showed thrombus in pulmonary artery. patient had elevated troponins upon admission, likely secondary to PE- Type 2 NSTEMI. Plan: continue heparin drip, ASA, statin, BB (4) Acute kidney injury Current Visit: Yes Status: Resolved Assessment and plan: resolved. Cr back to baseline. (5) HTN (hypertension) Current Visit: Yes Status: Acute Assessment and plan: blood pressures well controlled at this time. continue home med Atenolol and monitor. Qualifiers: Hypertension type: essential hypertension Qualified Code(s): I10 - Essential (primary) hypertension (6) DVT prophylaxis Current Visit: Yes Status: Acute Assessment and plan: Patient is on heparin drip. - Subjective Interval history: 76 year old female evaluated at bedside. She is alert and oriented x3, no acute distress. patient denies nausea, vomiting, diarrhea, fever, chills. - Constitutional Vitals: Temp Pulse Resp BP Pulse Ox 97.4 F L 48 16 121/71 96 09/26/16 07:33 09/26/16 07:33 09/26/16 07:33 09/26/16 07:33 09/26/16 07:33 General appearance: Present: cooperative, A&O X 3, pleasant, obese, answers questions appropriately - Head Head exam: Present: atraumatic, normocephalic - Neck Neck exam general surgery: Present: supple, trachea midline - Respiratory Respiratory exam: Present: CTAB - Cardiovascular Cardiovascular exam: Present: irregular rhythm - GI/Abdominal GI/Abdominal exam: Present: normal bowel sounds, soft. Absent: distended, tenderness - Extremities Exam Extremities exam: Present: pedal edema, radial pulses palpable and symetrical. Absent: cyanotic - Neurological Exam Neurological exam: Present: alert, oriented X3, no focal deficits - Psychiatric Psychiatric exam: Present: normal affect, normal mood Internal Medicine: Result - Labs CBC & Chem 7: 09/26/16 04:15 09/26/16 04:15 Labs: Short CBC 09/26/16 Range/Units 04:15 WBC 7.9 (4.3-11.1) K/mcL Hgb 11.5 (11.5-15.4) g/dL Hct 35.4 (35.3-44.9) % Plt Count 217 (140-400) K/mcL Neutrophils # 5.2 (1.6-8.9) K/mcL BMP 09/26/16 04:15 Sodium 138 Potassium 4.5 Chloride 105 Carbon Dioxide 23 BUN 31 H Creatinine 0.84 Glucose 113 H Calcium 8.3 L - ABG Interpretation ABG results: PT/INR, D-dimer PT 16.5 Seconds (9.4-12.1) H 09/23/16 18:07
[2016-09-26] MEDS: APIXABAN 5 MG TABLET PO SCH (22:21)
[2016-09-27 04:10] LABS: Basophils % 0.2 %; Eosinophils # 0.1 K/mcL (0.0-0.6); Eosinophils % 1.2 %; Hematocrit 35.9 % (35.3-44.9); Hemoglobin 11.7 g/dL (11.5-15.4); Immature Granulocytes % 0.6 % (0-4); Lymphocytes % 23.6 %; Mean Corpuscular HGB Conc 32.6 g/dL (31.6-35.5); Mean Corpuscular Hemoglobin 30.1 pg (28.0-33.3); Mean Corpuscular Volume 92.3 fL (83.0-100.0); Mean Platelet Volume 11.1 fL (9.4-12.4); Monocytes # 0.6 K/mcL (0.0-1.3); Neutrophils # 5.6 K/mcL (1.6-8.9); Nucleated Red Blood Cells 0.7 /100 WBC (0); Platelet Count 247 K/mcL (140-400); Red Blood Count 3.89 M/mcL (3.82-4.97); Red Cell Distribution Width 15.1 % (11.5-14.5); Segmented Neutrophils % 67.4 %
[2016-09-27 04:24] LABS: BUN/Creatinine Ratio 35 (6-26); Blood Urea Nitrogen 32 mg/dL (7-20); Calcium 8.5 mg/dL (8.6-10.8); Carbon Dioxide 23 mEq/L (19-29); Chloride 104 mEq/L (98-109); Glucose 114 mg/dL (70-99); Osmolality,Calculated 292 (280-300); Potassium 4.4 mEq/L (3.5-4.5); Sodium 137 mEq/L (136-145); eGFR For African Americans > 60 (> 60); eGFR For Non-African Americans 59 (> 60)
[2016-09-27] MEDS: Mag Hydrox/Al Hydrox/Simeth 30 ML UDC PO SCH ×4 (08:58→20:51)
[2016-09-27] MEDS: APIXABAN 5 MG TABLET PO SCH ×2 (08:58→20:51)
[2016-09-27] MEDS: Aspirin Enteric Coated 81 MG Tablet PO SCH (08:58)
[2016-09-27] MEDS: Pantoprazole 40 MG VIAL IVP SCH (08:59)
--- NOTE | 2016-09-27 18:41 | Internal Med Progress Note ---
Date of Encounter: 09/27/16 Time of Encounter: 11:15 - Assessment and plan (1) Acute respiratory failure with hypoxia Current Visit: Yes Status: Acute Assessment and plan: Due to massive PE. Will treat underlying disease and close monitor patient On Apixaban Desaturated and now needs 6L/O2 to keep SPO2> 90% AT REST ONLY AFTER MILD EXERTION. I decided against discharging home today. She will need home oxygen when she is able to maintain saturation at ,4L/min oxygen by nasal cannula. Out-patoet work-up/surveilaance of lung nodule and ovarian cancer planned. Continue other care. (2) Elevated troponin Current Visit: Yes Status: Acute Assessment and plan: Most likely demand ischemia related to atrial fibrillation and sub-massive PE. (3) HTN (hypertension) Current Visit: Yes Status: Acute Assessment and plan: blood pressures well controlled at this time. Reduce dose of Atenolol to 12.5 mg po QD in view of bradycardia Add HCTZ 12.5 MG PO QD. Qualifiers: Hypertension type: essential hypertension Qualified Code(s): I10 - Essential (primary) hypertension (4) Lung nodule < 6cm on CT Current Visit: Yes Status: Acute Assessment and plan: out-patient surveilance (5) Pulmonary embolism, bilateral Current Visit: Yes Status: Acute Assessment and plan: CTA from 09/23/16 showed extensive bilateral pulmonary emboli extending from distal main pulmonary artery into bilateral segmental branches, suggestive of right heart/ventricular strain, 4.2cm ascending aneurysm, patchy areas of ground glass attenuation. Venous imaging also shows left upper extremity thrombosis, acute thrombosis in right popliteal and posterior tibial acute thrombosis. Previous history of DVT in left arm after her hysterectomy. She also has hx of ovarian cancer in 1980s. s/p IVC filter placement. CT Abdomen/pelvis showed no intra abdominal or pelvic mass identified to suggest neoplasm. Plan: Eliquis 10mg PO BID x7 days, then start 5mg PO daily. Patient requiring 4LNC oxygen currently, she qualifies for home oxygen. (6) Atrial fibrillation Current Visit: Yes Status: Chronic Assessment and plan: New onset atrial fibrillation. Etiology is current epiosde of PE Apixaban as above Reduce Atenolol to 12.5 mg po QD Qualifiers: Atrial fibrillation type: paroxysmal Qualified Code(s): I48.0 - Paroxysmal atrial fibrillation (7) Acute kidney injury Current Visit: Yes Status: Resolved Assessment and plan: resolved. Cr back to baseline. - Subjective Interval history: 76 year old female with medical history significant for HTN, HLD, obesity, and remote history of ovarian cancer admitted with hypoxic respiratory failure due to sub-massive pulmonary embolism with right heart strain. Troponinelevated due to pulmonary embolism and demand ischemia related to new-onset atrial fibrillation. Anticoagulation with Apixaban initiated after a short course of heparin. Oncology and pulmonology input appreciated. she feels better. She is less short of breath. RN reports persistent bradycardia. The patient and her the patient has always be bradycardia in 40-50s range for a long time. She has has always been asymptomatic. She was saturating 95% 3L O2 by nasal cannula at rest. - Constitutional Vitals: Temp Pulse Resp BP Pulse Ox 97.8 F 60 17 131/87 95 09/27/16 15:00 09/27/16 15:00 09/27/16 15:00 09/27/16 15:00 09/27/16 15:00 General appearance: Present: cooperative, A&O X 3, pleasant, obese, answers questions appropriately Exam: Obese Tachypneic, but nit significant distressed at rest. Not pale, anicteric, afebrile, acyanotic Chest: CTAB Heart: Irregular, bradycardia, HR=52. Abdomen: soft, non-tender, no masses. BOOK SHELVER; aao x 3, no gross focal neurological deficits. Extremities: Both upper extremities swollen., some purpura. Trace pedal edema. Internal Medicine: Result - Labs CBC & Chem 7: 09/27/16 03:30 09/27/16 03:30 Labs: Short CBC 09/27/16 Range/Units 03:30 WBC 8.3 (4.3-11.1) K/mcL Hgb 11.7 (11.5-15.4) g/dL Hct 35.9 (35.3-44.9) % Plt Count 247 (140-400) K/mcL Neutrophils # 5.6 (1.6-8.9) K/mcL BMP 09/27/16 03:30 Sodium 137 Potassium 4.4 Chloride 104 Carbon Dioxide 23 BUN 32 H Creatinine 0.92 Glucose 114 H Calcium 8.5 L - ABG Interpretation ABG results: PT/INR, D-dimer PT 16.5 Seconds (9.4-12.1) H 09/23/16 18:07 Consult Discharge Plan - Plan Referrals: Gudelia Celis MD [Primary Care Provider] - 10/03/16 2:00 pm
[2016-09-28] MEDS: Pantoprazole 40 MG VIAL IVP SCH (10:31)
[2016-09-28] MEDS: hydroCHLOROthiazide 25 MG TABLET PO SCH (10:33)
[2016-09-28] MEDS: Aspirin Enteric Coated 81 MG Tablet PO SCH (10:33)
[2016-09-28] MEDS: APIXABAN 5 MG TABLET PO SCH ×2 (10:33→21:36)
--- NOTE | 2016-09-28 10:34 | Internal Med Progress Note ---
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 Venous imaging also shows left upper extremity thrombosis, acute thrombosis in right popliteal and posterior tibial acute thrombosis. s/p IVC filter placement Due to sub-massive PE. Anticoagulated with Apixaban Desaturated overnight and now needs 9L/O2 to keep SPO2> 90% AT REST ONLY AFTER MILD EXERTION. -Desaturation most likely secondary to pulmonary embolism. Patient will most likely have to be discharged on a high flow oxygen. Repeat chest x-ray shows cardiomegaly. No evidence of pneumonia. Out-patient work-up/surveillance of lung nodule 5mm in the left upper lobe. Patient has a history of ovarian cancer. Patient will be followed outpatient by oncology for further evaluation of lung nodule and anticoagulation. (2) Pulmonary embolism, bilateral Current Visit: Yes Status: Acute Assessment and plan: Plan as above. CTA evidence of PE ECHo evidence of right heart strain with right heart enlargement and severe tricuspid and pulmonary regurgitation. Continue Eliquis (3) HTN (hypertension) Current Visit: Yes Status: Acute Assessment and plan: blood pressures well controlled at this time. Reduce dose of Atenolol to 12.5 mg po daily in view of bradycardia continue HCTZ 12.5 MG PO QD. Qualifiers: Hypertension type: essential hypertension Qualified Code(s): I10 - Essential (primary) hypertension (4) NSTEMI (non-ST elevated myocardial infarction) Current Visit: Yes Status: Resolved Assessment and plan: Patient came in with SOB, found to have bilateral PE. Echo on 09/23 showed thrombus in pulmonary artery. patient had elevated troponins upon admission, likely secondary to PE- Type 2 NSTEMI. Plan: continue eliquis, ASA, statin, BB (5) Atrial fibrillation Current Visit: Yes Status: Chronic Assessment and plan: New onset atrial fibrillation. Etiology is current epiosde of PE Apixaban as above continue Atenolol to 12.5 mg po QD Qualifiers: Atrial fibrillation type: paroxysmal Qualified Code(s): I48.0 - Paroxysmal atrial fibrillation (6) Acute kidney injury Current Visit: Yes Status: Resolved Assessment and plan: resolved. Cr back to baseline. (7) DVT prophylaxis Current Visit: Yes Status: Acute Assessment and plan: Patient is on eliquis - Subjective Interval history: Patient is planned to be discharged last night. However yesterday evening she started to desaturate and her oxygen has to be increased to 15 L high flow. Because of this patient stayed overnight. This morning patient's oxygen was decreased to 9 L. Patient states that she is not short of breath. She denies chest pain, abdominal pain, nausea, vomiting, diarrhea. Patient has a good appetite, and denies any problem with urination. - Constitutional Vitals: Temp Pulse Resp BP Pulse Ox 97.9 F 53 18 139/91 90 L 09/28/16 07:00 09/28/16 07:00 09/28/16 07:00 09/28/16 07:00 09/28/16 07:00 General appearance: Present: cooperative, A&O X 3, pleasant, obese, answers questions appropriately - Respiratory Respiratory exam: Present: CTAB. Absent: accessory muscle use, rales, rhonchi, wheezes - Cardiovascular Cardiovascular exam: Present: RRR, +S1, +S2. Absent: diastolic murmur, gallop, rubs, systolic murmur - GI/Abdominal GI/Abdominal exam: Present: normal bowel sounds, soft, no peritoneal signs. Absent: distended, tenderness - Extremities Exam Extremities exam: Present: warm, radial pulses palpable and symetrical. Absent : calf tenderness, cyanotic, pedal edema Internal Medicine: Result - Labs CBC & Chem 7: 09/27/16 03:30 09/27/16 03:30 - ABG Interpretation ABG results: PT/INR, D-dimer PT 16.5 Seconds (9.4-12.1) H 09/23/16 18:07 - Impressions Impressions Chest X-Ray 09/28/16 07:31 IMPRESSION: 1. Stable mild enlargement of the cardiac silhouette. No superimposed acute pulmonary abnormality. D/ / Jad Leonard MD / Jad Leonard MD Interpreting Provider: Jad Leonard MD Consult Discharge Plan - Plan Referrals: Gudelia Celis MD [Primary Care Provider] - 10/03/16 2:00 pm <Carmelo Anthony T - Last Filed: 09/28/16 11:29> - Constitutional Vitals: Temp Pulse Resp BP Pulse Ox 97.9 F 54 16 128/83 95 09/28/16 07:00 09/28/16 11:00 09/28/16 11:00 09/28/16 11:00 09/28/16 11:00 Internal Medicine: Result - Labs CBC & Chem 7: 09/27/16 03:30 09/27/16 03:30 - ABG Interpretation ABG results: PT/INR, D-dimer PT 16.5 Seconds (9.4-12.1) H 09/23/16 18:07 - Impressions Impressions Chest X-Ray 09/28/16 07:31 IMPRESSION: 1. Stable mild enlargement of the cardiac silhouette. No superimposed acute pulmonary abnormality. D/ / Jad Leonard MD / Jad Leonard MD Interpreting Provider: Jad Leonard MD - Attending Attestation I examined this patient and my medical decision-making was reviewed with the CAMPUS WELLNESS COORDINATOR/PA/Advanced Practice Nurse/Resident Physician. I agree with the documented findings, disposition and treatment plan as described except to the extent set forth below. 76 Y/O F with PMH of HTN, HLD, Obesity, Remote hx of Ovarian CA She was admitted 09/22 for management of acute hypoxemic respiratory failure secondary to sub-massive pulmonary embolism with right heart strain, Elevated troponins from demand ischemia, newly diagnosed Atrial fibrillation and ADINA. She has a hx of DVTs in the past and new DVTs in this admission RLE She is hemodynamically stable Heparin drip has been transitioned to po eliquis She was scheduled for discharge home with services 09/27/16 and desaturated requiring high flow O2, She is seen at bedside with her spouse, denies new complains Physical Exam: VSS, bradycardic. saturating 98% on supplemental O2 15L, when titrated down to 5L, patient destaurated to 94% and maintained this , about 5 minutes later she desaturated to 90% and O2 was once again increased. Systemic exam unremarkable Labs and Imaging reviewed.Stable CXR repeated today due to sudden increasing o2 requirement is stable with no new findings Plan is to continue current care and patient will be observed and O2 titrated down to 4-5L after which patient may be discharged once home O2 has been set up Rest of details as in resident documentation......
[2016-09-28] MEDS: Mag Hydrox/Al Hydrox/Simeth 30 ML UDC PO SCH ×4 (10:36→21:36)
[2016-09-29] MEDS: APIXABAN 5 MG TABLET PO SCH ×2 (09:14→21:38)
[2016-09-29] MEDS: hydroCHLOROthiazide 25 MG TABLET PO SCH (09:14)
[2016-09-29] MEDS: Aspirin Enteric Coated 81 MG Tablet PO SCH (09:14)
[2016-09-29] MEDS: Mag Hydrox/Al Hydrox/Simeth 30 ML UDC PO SCH ×4 (09:15→21:37)
[2016-09-29] MEDS: Pantoprazole 40 MG VIAL IVP SCH (09:15)
--- NOTE | 2016-09-29 09:56 | Internal Med Progress Note ---
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 Venous imaging also shows left upper extremity superficial thrombosis, acute DVT in right popliteal and posterior tibial veins. Patient has been transitioned from Heparin drip to Apixaban 10mg BID. S/p IVC filter. 09/27: Patient desaturated and now requiring 6L by NC to keep SpO2 > 90% at rest or with mild exertion. Repeat chest xray showed cardiomeagly with no acute changes. Suspect desaturation secondary to B/L PE. 09/28: Patient requiring 10-15 L by NC with SpO2 90-95% 09/29: Patient continues to deny sob at rest or with exertion. Weaned O2 to 8L this AM with SpO2 95-97%. Will continue to monitor and wean oxygen as tolerated. Will plan for d/c with home oxygen when tolerating 4-5L NC. Will also need out-patient work-up/surveillance of lung nodule 5mm in the left upper lobe as patient has a history of ovarian cancer. Will plan for outpatient follow up with oncology to follow nodule and anticoagulation. (2) Pulmonary embolism, bilateral Current Visit: Yes Status: Acute Assessment and plan: See above. Patient with CTA showing b/l PE . Echo showing evidence of right heart strain. S/p IVC filter. On Apixiban 10mg PO BID. (3) HTN (hypertension) Current Visit: Yes Status: Acute Assessment and plan: Patient with history of HTN. BP currently 148/68. Have restarted home Atenolol at half dose - 12.5 mg PO daily due to bradycardia. Have restarted home HCTZ 12.5 mg PO daily. Will continue to monitor. Qualifiers: Hypertension type: essential hypertension Qualified Code(s): I10 - Essential (primary) hypertension (4) Atrial fibrillation Current Visit: Yes Status: Chronic Assessment and plan: Patient denies history of atrial fibrillation. EKG on arrival shows patient in Afib. Suspect secondary to PE. Denies sob, palpitations, cp at this time. HR currently 65. CHADSVASC score = 4. Patient on Apixaban for PE. Will need outpatient cardiology followup after discharge. Qualifiers: Atrial fibrillation type: paroxysmal Qualified Code(s): I48.0 - Paroxysmal atrial fibrillation (5) Acute kidney injury Current Visit: Yes Status: Resolved Assessment and plan: Resolved. Cr currently 0.92. (6) NSTEMI (non-ST elevated myocardial infarction) Current Visit: Yes Status: Resolved Assessment and plan: Patient with elevated troponins on admission. Denies chest pain throughout hospital stay. CTA/Echo showing evidence of PE. Suspect type 2 NSTEMI secondary to PE. Cardiology has seen the patient. Will continue ASA, Crestor 40 PO daily, Atenolol 12.5 PO daily. (7) DVT (deep venous thrombosis) Current Visit: Yes Status: Acute Assessment and plan: Anticoagulated with Apixiban for PE. Qualifiers: DVT location: lower extremity Affected thrombotic vein of extremity: unspecified lower extremity distal vein Laterality: unspecified laterality Chronicity: unspecified Qualified Code(s): I82.4Z9 - Acute embolism and thrombosis of unspecified deep veins of unspecified distal lower extremity - Subjective Interval history: I have seen and examined the patient at bedside this AM. No overnight events. Reports she slept ok last night and is eating/drinking fine at this time. She has no pain or new complaints at this time. Denies chills, sob, cp, palpitations , n/v, diarrhea, abdominal pain, numbness, tingling, weakness. - Constitutional Vitals: Temp Pulse Resp BP Pulse Ox 97.8 F 65 16 148/68 97 09/29/16 07:25 09/29/16 07:25 09/29/16 07:25 09/29/16 07:25 09/29/16 08:09 General appearance: Present: cooperative, A&O X 3, pleasant, obese, answers questions appropriately - Head Head exam: Present: atraumatic, normocephalic - Eye Eye exam: Present: PERRL, conjuntiva pink, sclera anicteric Pupils: Present: PERRL - Neck Neck exam general surgery: Present: supple, trachea midline. Absent: lymphadenopathy - Respiratory Respiratory exam: Present: CTAB. Absent: accessory muscle use, rales, rhonchi, wheezes - Cardiovascular Cardiovascular exam: Present: irregular rhythm, +S1, +S2. Absent: diastolic murmur, gallop, rubs, systolic murmur - GI/Abdominal GI/Abdominal exam: Present: normal bowel sounds, soft, no peritoneal signs. Absent: distended, firm, guarding, hepatomegaly, tenderness - Extremities Exam Extremities exam: Present: warm, radial pulses palpable and symetrical. Absent : calf tenderness, cyanotic, pedal edema - Back Exam Back exam: Present: normal inspection. Absent: paraspinal tenderness, tenderness - Neurological Exam Neurological exam: Present: CN II-XII intact, oriented X3, no focal deficits. Absent: pronater drift, facial droop, speech deficit - Psychiatric Psychiatric exam: Present: normal affect, normal mood - Skin Skin exam: Present: dry, intact Internal Medicine: Result - Labs CBC & Chem 7: 09/27/16 03:30 09/27/16 03:30 - ABG Interpretation ABG results: PT/INR, D-dimer PT 16.5 Seconds (9.4-12.1) H 09/23/16 18:07 - Impressions Chest X-Ray 09/28/16 07:31 IMPRESSION: 1. Stable mild enlargement of the cardiac silhouette. No superimposed acute pulmonary abnormality. D/ / Jad Leonard MD / Jad Leonard MD Interpreting Provider: Jad Leonard MD Consult Discharge Plan - Plan Referrals: Gudelia Celis MD [Primary Care Provider] - 10/03/16 2:00 pm <Carmelo Anthony T - Last Filed: 09/29/16 16:41> - Constitutional Vitals: Temp Pulse Resp BP Pulse Ox 97.8 F 64 16 141/85 94 L 09/29/16 15:27 09/29/16 15:27 09/29/16 15:27 09/29/16 15:27 09/29/16 15:27 Internal Medicine: Result - Labs CBC & Chem 7: 09/27/16 03:30 09/27/16 03:30 - ABG Interpretation ABG results: PT/INR, D-dimer PT 16.5 Seconds (9.4-12.1) H 09/23/16 18:07 - Attending Attestation I examined this patient and my medical decision-making was reviewed with the PLAY THERAPIST/PA/Advanced Practice Nurse/Resident Physician. I agree with the documented findings, disposition and treatment plan as described except to the extent set forth below. 76 Y/O F with PMH of HTN, HLD, Obesity, Remote hx of Ovarian CA She was admitted 09/22 for management of acute hypoxemic respiratory failure secondary to sub-massive pulmonary embolism with right heart strain, Elevated troponins from demand ischemia, newly diagnosed Atrial fibrillation and ADINA. She has a hx of DVTs in the past and new DVTs in this admission RLE She is hemodynamically stable Heparin drip has been transitioned to po eliquis She was scheduled for discharge home with services 09/27/16 and desaturated requiring high flow O2, She is seen at bedside with her spouse, denies new complains Rpt CXR unremarkable for new findings patient has no evidence of fluid overload clinically No other explanation for her high flow O2 need except PE Physical Exam: VSS, saturating 95% on supplemental O2 7L, Chest is clear, abdomen is benign, S1, s2only, no pedal edema Labs and Imaging reviewed.Stable Continue to wean O2 Anticipate d/c a.m Rest of details as in resident's documentation
[2016-09-30 07:10] VITALS: BP 142/75
--- NOTE | 2016-09-30 09:26 | Discharge Summary ---
<Missael Kumar - Last Filed: 09/30/16 15:30> Date of Encounter: 09/30/16 Time of Encounter: 09:26 - Discharge Diagnosis (1) Acute respiratory failure with hypoxia Priority: Primary Status: Acute Comments: CTA from 09/23/16 showed submassive bilateral pulmonary emboli extending from distal main pulmonary artery into bilateral segmental branches, suggestive of right heart/ventricular strain, 4.2cm ascending aneurysm, patchy areas of ground glass attenuation. Venous imaging also shows left upper extremity superficial thrombosis, acute DVT in right popliteal and posterior tibial veins. Patient has been transitioned from Heparin drip to Apixaban 10mg BID. S/p IVC filter. 09/27: Patient desaturated and now requiring 6L by NC to keep SpO2 > 90% at rest or with mild exertion. Repeat chest xray showed cardiomeagly with no acute changes. Suspect desaturation secondary to B/L PE. 09/28: Patient requiring 10-15 L by NC with SpO2 90-95% 09/29: Patient continues to deny sob at rest or with exertion. Weaned O2 to 8L this AM with SpO2 95-97%. Will continue to monitor and wean oxygen as tolerated. Will plan for d/c with home oxygen when tolerating 4-5L NC. Will also need out-patient work-up/surveillance of lung nodule 5mm in the left upper lobe as patient has a history of ovarian cancer. Will plan for outpatient follow up with oncology to follow nodule and anticoagulation. 09/30 Patient was weaned to 6L, satting at 96%. Home health and PT/OT notes reviewed, patient to be sent home with home oxygen and home health. (2) Pulmonary embolism, bilateral Priority: Primary Status: Acute Comments: Plan per assessment above. Continue apixiban 10mg po bid. (3) HTN (hypertension) Priority: Secondary Status: Chronic Comments: Patient with history of hypertension, bp 142/75. Restarted home medications and half dosing of atenolol due to bradycardia. Restarted HCTZ. Continue to monitor. Qualifiers: Hypertension type: essential hypertension Qualified Code(s): I10 - Essential (primary) hypertension (4) Atrial fibrillation Priority: Primary Status: Acute Comments: Suspect secondary to PE. Heart rate controlled. CHADSVASC score =4. Continue apixaban. Cardiology followup on discharge. Qualifiers: Atrial fibrillation type: paroxysmal Qualified Code(s): I48.0 - Paroxysmal atrial fibrillation (5) Acute kidney injury Priority: Primary Status: Resolved Comments: Resolved (6) DVT (deep venous thrombosis) Priority: Primary Status: Acute Comments: Anticoagulation with apixaban. Qualifiers: DVT location: lower extremity Affected thrombotic vein of extremity: unspecified lower extremity distal vein Laterality: unspecified laterality Chronicity: unspecified Qualified Code(s): I82.4Z9 - Acute embolism and thrombosis of unspecified deep veins of unspecified distal lower extremity - Discharge Medications Prescriptions: Apixaban [Eliquis] 5 mg PO BID #38 tablet Atenolol [Tenormin] 12.5 mg PO DAILY #30 tablet Hydrochlorothiazide 12.5 mg PO DAILY #30 tablet Home Medications: Calcium Carbonate/Vitamin D3 [Calcium 600-Vit D3 200 Tablet] 1 each PO DAILY 01/03 [History] Diclofenac Sodium [Voltaren] 2 gm TP QID PRN 09/22/16 [History] [place]-3S/Dha/Epa/Fish Oil [Fish Oil 1,200 mg Softgel] 1 each PO DAILY 09/22/16 [ History] Potassium Chloride [K-Tab ER] 20 meq PO BID 09/22/16 [History] Rosuvastatin [Crestor] 40 mg PO MO 09/22/16 [History] Apixaban [Eliquis] 5 mg PO BID #38 tablet 09/30/16 [Rx] Aspirin Enteric Coated [Aspirin EC] 81 mg PO DAILY tablet. 09/30/16 [Rx] Atenolol [Tenormin] 12.5 mg PO DAILY #30 tablet 09/30/16 [Rx] Hydrochlorothiazide 12.5 mg PO DAILY #30 tablet 09/30/16 [Rx] Allergies/Adverse Reactions: Allergies atorvastatin [From Lipitor] Adverse Reaction (Verified 09/22/16 13:08) Muscle Pain rosuvastatin [From Crestor] Adverse Reaction (Verified 09/22/16 17:08) Muscle Pain Patient states she does take this medication once weekly, however she cannot take daily. Procedures/tests Complete & Pending: Pulmonary Perfusion Imaging 09/22/16 15:03 IMPRESSION: Intermediate probability of pulmonary embolus, primarily on the left. If there is strong clinical concern for pulmonary emboli, Consider chest CTPA. D/ / Terrance Salcido MD / Terrance Salcido MD Interpreting Provider: Terrance Salcido MD Guidance Needle Placement Ultrasound 09/23/16 00:00 IMPRESSION: 1. IVC has normal appearance, suitable for filter placement. 2. Infrarenal inferior vena cava filter placement as discussed above. 3. Central venous catheter placement as discussed above. D/ / Leif Mazariegos MD / Leif Mazariegos MD Interpreting Provider: Leif Mazariegos MD Filter Placement 09/23/16 00:00 IMPRESSION: 1. IVC has normal appearance, suitable for filter placement. 2. Infrarenal inferior vena cava filter placement as discussed above. 3. Central venous catheter placement as discussed above. D/ / Leif Mazariegos MD / Leif Mazariegos MD Interpreting Provider: Leif Mazariegos MD Insertion Non-Tunneled Catheter 09/23/16 00:00 IMPRESSION: 1. IVC has normal appearance, suitable for filter placement. 2. Infrarenal inferior vena cava filter placement as discussed above. 3. Central venous catheter placement as discussed above. D/ / Leif Mazariegos MD / Leif Mazariegos MD Interpreting Provider: Leif Mazariegos MD Chest CTA 09/23/16 11:30 IMPRESSION: 1. Extensive bilateral pulmonary emboli extending from the distal main pulmonary artery into the bilateral segmental branches. CT findings suggestive of right heart/ventricular strain. 2. A 4.2 cm ascending aortic aneurysm. 3. There are patchy areas of ground-glass attenuation in the left upper lobe, nonspecific and may be infectious or inflammatory in etiology. There is an indeterminate 5 mm mixed nodule in the left upper lobe. Recommend a short-term follow-up in 3 months given history of breast cancer. 4. Small hiatal hernia. Critical results were called by Dr. Tiffanie Malagon MD to Jeyson Zhang on 09/23/2016 at 12:41. D/ / 09/23/2016 12:51:17 [facility] Provider: Tiffanie Malagon MD Abdomen/Pelvis CT 09/25/16 07:56 IMPRESSION: Again noted are bilateral basilar pulmonary emboli, as seen on the recent CTA of the chest on 09/23/2016. No intra-abdominal or pelvic mass is identified to suggest a definite neoplastic process. The patient is status post hysterectomy. Cholelithiasis. There are 2 anterior midline peritoneal wall hernias which contain omental fat. No bowel herniation. Small umbilical hernia is also noted which contains fat. D/ / Arthur Mcclellan MD / Arthur Mcclellan MD Interpreting Provider: Arthur Mcclellan MD Chest X-Ray 09/28/16 07:31 IMPRESSION: 1. Stable mild enlargement of the cardiac silhouette. No superimposed acute pulmonary abnormality. D/ / Jad Leonard MD / Jad Leonard MD Interpreting Provider: Jad Leonard MD Date of admission: 09/23/16 08:02 Primary care physician: Gudelia Velarde-[facility] Consults: 09/23/16 15:45 Consult to Pulmonology [CONS] Routine Consulting Provider: Pulm Crit Care & Sleep Alice Reason for Consult: Bilateral PE and cntral PE in main pulmonary artery, Dr. Barraaz notified Pulmonary Call Completed: Yes 09/23/16 22:39 Consult to Interventional Radiology [CONS] Stat Consulting Provider: Radiology Interventional Cols Reason for Consult: For IVC filter placement Time Notified: 21:30 Call Completed: Yes 09/25/16 11:49 Consult to Oncology Hematology [CONS] Routine Consulting Provider: Arsenio Marquez Jr Reason for Consult: Submassive PE with DVT acute onset. Source unknown. coagulation work up? Call Completed: Yes 09/26/16 08:54 Consult to Batch Operator [CONS] Routine Reason for SW Consult: Evans check for anticoagulation 09/26/16 14:09 Consult to Occupational Therapy [CONS] Routine Comment: Evaluate, develop and implement POC Consult to Physical Therapy [CONS] Routine Comment: Evaluate, develop and implement POC 09/29/16 08:42 Consult to Case Management [CONS] Stat Comment: High flow home O2 need Discharging clinician: Carmelo Anthony (Missael Kumar) Anticipated date of discharge: 09/30/16 - Patient Status Disposition: Home Health Service Condition: Fair Functional capacity at discharge: uses cane/walker Overall status at discharge: patient is progressing back to baseline - Discharge Instructions Instructions: Atenolol (By mouth), Hydrochlorothiazide (By mouth), Apixaban ( By mouth), Myocardial Infarction (DC), Atrial Fibrillation (DC), Pulmonary Embolism (DC), Using Oxygen at Home (DC), Using Oxygen at Home (GEN), Chronic Hypertension (DC), Pulmonary Nodules (DC), Pulmonary Nodules (GEN) Follow Up With: Gudelia Celis MD [Primary Care Provider] - 10/03/16 2:00 pm Lon Matute MD [Partnered Physician] - 10/07/16 1:15 pm (IN HESSEL) Vincenzo Khanna MD [Partnered Physician] - Forms: ED Satisfaction Letter Additional Instructions: Please follow up with primary care provider within 5-7 days regarding this hospital visit. Please follow up with cardiology for monitoring of heart strain/afib. Please follow up with hematology/oncology for management of anticoagulation and continued workup of DVT/PE. Occupational therapy recommends discharge to home with 24 hours supervision. Patient will require home health OT to ensure independence and safety with ADLs/ IADLs within the home. - Diet and Activity Activity: increase activity as tolerated, wear oxygen at all times Diet: low fat, low cholesterol, low salt diet Interval History: Patient did well overnight, no complaints. Denies fevers, chills, sweats, nausea, vomiting, chest pain, shortness of breath, abdominal pain, changes in bowels or bladder, weakness, or loss of sensation. Tolerated diet well. Hospital course: HPI: "Ms. Corral is a 76 year old female patient with history of hypertension, hyperlipidemia and ovarian cancer who presented to the ER with complaints of shortness of breath especially with ambulation. She would get really tired and had to take a break even after walking short distances. She does not use oxygen at home. She has never had any coronary artery disease or has been diagnosed with congestive heart failure. She denies any chest pain but she did have some pain in her right subscapular area earlier today that has spontaneously resolved. She denies any cough, fever or chills or night sweats. Denies any palpitations. She does recollect having an abnormal heart rhythm but she does not know exactly what it is other than skipped or dropped beats that she used to have. No nausea or vomiting. No diarrhea or constipation. She has not developed any recent leg swelling. No recent travel." Hospital Course: In the ED the patient was hypoxic. She was placed on 3L by NC with SpO2 coming up to >93%. CMP showed evidence of ADINA with BUN/Cr 51/1.25. EKG was done and showed afib as well as ST deviation and T wave abnormalities in the lateral leads. Troponins were elevated at 0.23. Chest x-ray was preformed and showed no acute cardiopulmonary disease. With sudden onset of SOB patient was worked up for PE. V/Q scan was ordered and showed intermediate risk of PE. She was transferred to the ICU for acute respiratory failure with hypoxia and continued workup of SOB/elevated troponins. CTA was preformed and showed extensive bilateral pulmonary emboli extending from the distal main pulmonary artery into the bilateral segmental branches, right ventricular strain, 4.2 cm ascending aortic aneurysm, and a 5mm mixed nodule in the left upper lobe. Due to ADIAN/ obesity patient was placed on UFH drip. The patient remained hemodynamically stabe and did not require tPA. Venous U/S of upper and lower extremities was preformed. There was an acute occlusive thrombus in the right popliteal and right posterior tibial artery. There is a superficial thrombus in the left cephalic upper arm vein. She underwent IVC filter placement 09/24/15 after recommendation by pulmonology/cardiology. Echo was done and showed left ventricle with possible mild reduction in function, RV large and foreshortened, septal flatening in systole and diastole suggesting RV pressure and volume overload. Moderately severe tricuspid and pulmonic regurgitation. There is a long tubular somewhat mobile echo density in the pulmonary artery suggestive of a thrombus. The mid inferior septal, basal inferior septal, mid anterior lateral , basal anterior lateral, mid anterior septal, mid inferior lateral, basal anterior septal, and basal lateral doan are hypokinetic. Troponins were trended and were flat and adynamic. Patient likely had type 2 troponin leak secondary to PE. Cardiology recommended continued medical management with outpatient follow up for right heart strain and new afib. The patients Cr returned to baseline (0.87). Due to low BP, all home BP medications were initially held. Home Atenolol was restarted at half dosing (12.5 po daily) and HCTZ was restarted at half dosing (12.5 po daily). The patient has been adequately controlled on these two medications so her home nifedipine was not restarted. Patient will need close followup with her primary care doctor for BP monitoring. With history of ovarian cancer patient underwent abdominal CT to evaluate possible malignancy induced DVT. CT revealed no new masses/malignancy. Heme/onc was consulted and recommended outpatient workup for possible underlying hypercoagulable state. She was transitioned from the heparin drip to eliquis. On 09/27 patient became more hypoxic requiring 10L NC to keep SpO2>92% at rest. A chest xray was ordered and showed no new acute cardiopulmonary disease. Patient did well the next day and has been slowly weaned from oxygen. Today patient appears to be in stable condition and ready for discharge. She does not have any SOB, chest pain or any other complaints at this time. She continues to require 6L O2 and will be d/c with high flow oxygen and home health. Patient Care Instructions: * Follow up with PCP within 5-7 days regarding hospital stay. Will need further monitoring of aortic aneurysm, lung nodule, DVT/PE, BP meds. * Follow up with Heme/onc for management of anticoagulation/continued workup. * Follow up with cardiology for right heart strain secondary to PE as well as new Afib. - Time Spent with Patient Total time spent providing and/or coordinating discharge services: Greater than 30 minutes - Constitutional Vitals: Temp Pulse Resp BP Pulse Ox 97.4 F L 61 18 142/75 92 L 09/30/16 04:13 09/30/16 07:08 09/30/16 07:08 09/30/16 07:08 09/30/16 07:08 General appearance: Present: cooperative, A&O X 3, pleasant, obese, answers questions appropriately - Head Head exam: Present: atraumatic, normocephalic - Eye Eye exam: Present: PERRL, conjuntiva pink, sclera anicteric Pupils: Present: PERRL - Neck Neck exam general surgery: Present: supple, trachea midline. Absent: lymphadenopathy - Respiratory Respiratory exam: Present: CTAB. Absent: accessory muscle use, rales, rhonchi, wheezes - Cardiovascular Cardiovascular exam: Present: RRR, +S1, +S2. Absent: diastolic murmur, gallop, rubs, systolic murmur - GI/Abdominal GI/Abdominal exam: Present: normal bowel sounds, soft, no peritoneal signs. Absent: distended, tenderness - Extremities Exam Extremities exam: Present: warm, radial pulses palpable and symetrical. Absent : calf tenderness, cyanotic, pedal edema - Neurological Exam Neurological exam: Present: CN II-XII intact, oriented X3, no focal deficits. Absent: pronater drift, facial droop, speech deficit - Skin Skin exam: Present: dry, intact, warm <Carmelo Anthony T - Last Filed: 09/30/16 16:03> Date of admission: 09/23/16 08:02 Primary care physician: Gudelia Vel[facility] Consults: 09/23/16 15:45 Consult to Pulmonology [CONS] Routine Consulting Provider: Pulm Crit Care & Sleep Alice Reason for Consult: Bilateral PE and cntral PE in main pulmonary artery, Dr. Barraza notified Pulmonary Call Completed: Yes 09/23/16 22:39 Consult to Interventional Radiology [CONS] Stat Consulting Provider: Radiology Interventional Cols Reason for Consult: For IVC filter placement Time Notified: 21:30 Call Completed: Yes 09/25/16 11:49 Consult to Oncology Hematology [CONS] Routine Consulting Provider: Arsenio Marquez Jr Reason for Consult: Submassive PE with DVT acute onset. Source unknown. coagulation work up? Call Completed: Yes 09/26/16 08:54 Consult to Batch Operator [CONS] Routine Reason for SW Consult: Evans check for anticoagulation 09/26/16 14:09 Consult to Occupational Therapy [CONS] Routine Comment: Evaluate, develop and implement POC Consult to Physical Therapy [CONS] Routine Comment: Evaluate, develop and implement POC 09/29/16 08:42 Consult to Case Management [CONS] Stat Comment: High flow home O2 need Hospital course: Ms. Corral is a 76 year old female - Time Spent with Patient Total time spent providing and/or coordinating discharge services: - Constitutional Vitals: Temp Pulse Resp BP Pulse Ox 97.4 F L 61 18 142/75 92 L 09/30/16 04:13 09/30/16 07:08 09/30/16 07:08 09/30/16 07:08 09/30/16 12:19 - Attending Attestation I examined this patient and my medical decision-making was reviewed with the KNOWLEDGE MANAGER/PA/Advanced Practice Nurse/Resident Physician. I agree with the documented findings, disposition and treatment plan as described except to the extent set forth below. 76 Y/O F with PMH of HTN, HLD, Obesity, Remote hx of Ovarian CA She was admitted 09/22 for management of acute hypoxemic respiratory failure secondary to sub-massive pulmonary embolism with right heart strain, Elevated troponins from demand ischemia, newly diagnosed Atrial fibrillation and ADINA. She has a hx of DVTs in the past and new DVTs in this admission RLE. She also has a new diagnosis of A-fib She is stable for discharge home today with services, home O2 and anticoagulation Physical exam unremarkable Follow up with PCP, Cardiology, Hematology-Oncology
[2016-09-30] MEDS: Mag Hydrox/Al Hydrox/Simeth 30 ML UDC PO SCH (10:19)
[2016-09-30] MEDS: APIXABAN 5 MG TABLET PO SCH (10:19)
[2016-09-30] MEDS: hydroCHLOROthiazide 25 MG TABLET PO SCH (10:20)
[2016-09-30] MEDS: Pantoprazole 40 MG VIAL IVP SCH (10:20)
[2016-09-30] MEDS: Aspirin Enteric Coated 81 MG Tablet PO SCH (10:20)
--- NOTE | 2016-09-30 14:14 | Physician Discharge Referral ---
<KrystaldanniMissael murray - Last Filed: 09/30/16 14:12> Home Health/Hosp Referral Info Transfer to: Home Health Attending Provider: Dr. Anthony Provider in Charge Post Discharge: PCP - Diagnosis (1) Acute respiratory failure with hypoxia Priority: Primary Status: Acute (2) Pulmonary embolism, bilateral Priority: Primary Status: Acute (3) HTN (hypertension) Priority: Secondary Status: Acute (4) Atrial fibrillation Priority: Primary Status: Chronic (5) Acute kidney injury Priority: Primary Status: Resolved (6) DVT (deep venous thrombosis) Priority: Primary Status: Acute - Respiratory Orders Oxygen / L per min (6L high flow, titrate to 92-98%) Smoking Cessation: Smoking cessation has been advised. For more information, call the [place] Tobacco Quit Line at 2-738-QGBP-NOW. - Diet/Nutrition Diet/Nutrition Orders: Cardiac - Activity Activity Orders: Walker - Services Needed Following services are medically necessary services: Home Health Aide, Occupational Therapy Home Care Orders: Patient must have 24 hour supervision. Requires home health OT to ensure independence and safety with ADLs/IADLs within home. - Transfer Medications Prescriptions: Apixaban [Eliquis] 10 mg PO BID #60 tablet Atenolol [Tenormin] 12.5 mg PO DAILY #30 tablet Hydrochlorothiazide 12.5 mg PO DAILY #30 tablet Home Medications: Calcium Carbonate/Vitamin D3 [Calcium 600-Vit D3 200 Tablet] 1 each PO DAILY 01/03 [History] Diclofenac Sodium [Voltaren] 2 gm TP QID PRN 09/22/16 [History] [place]-3S/Dha/Epa/Fish Oil [Fish Oil 1,200 mg Softgel] 1 each PO DAILY 09/22/16 [ History] Potassium Chloride [K-Tab ER] 20 meq PO BID 09/22/16 [History] Rosuvastatin [Crestor] 40 mg PO MO 09/22/16 [History] Apixaban [Eliquis] 10 mg PO BID #60 tablet 09/30/16 [Rx] Aspirin Enteric Coated [Aspirin EC] 81 mg PO DAILY tablet. 09/30/16 [Rx] Atenolol [Tenormin] 12.5 mg PO DAILY #30 tablet 09/30/16 [Rx] Hydrochlorothiazide 12.5 mg PO DAILY #30 tablet 09/30/16 [Rx] Allergies/Adverse Reactions: Allergies atorvastatin [From Lipitor] Adverse Reaction (Verified 09/22/16 13:08) Muscle Pain rosuvastatin [From Crestor] Adverse Reaction (Verified 09/22/16 17:08) Muscle Pain Patient states she does take this medication once weekly, however she cannot take daily. Certification: Further, I certify that my clinical findings support that this patient is homebound (i.e. absences from home require considerable and taxing effort and are for medical reasons or mu-ism services or infrequently or short duration when for other reasons) because: Homebound Reason: Severity of cardiac or pulmonary status limits activity tolerance Attestation: My signature below is to certify that this patient is under my care and that I, or nurse practitioner, or a physician's assistant warehouse manager working with me, has a face-to -face encounter with this patient. <Carmelo Anthony - Last Filed: 09/30/16 14:32> - Respiratory Orders Smoking Cessation: Smoking cessation has been advised. For more information, call the [place] Tobacco Quit Line at 6-083-KSAV-NOW. Certification: Further, I certify that my clinical findings support that this patient is homebound (i.e. absences from home require considerable and taxing effort and are for medical reasons or mu-ism services or infrequently or short duration when for other reasons) because: Attestation: My signature below is to certify that this patient is under my care and that I, or nurse practitioner, or a physician's assistant warehouse manager working with me, has a face-to -face encounter with this patient.
== END 2016-09-30 16:29 | disposition home health service (06) | DRG 252 ==
LOC: 2NENU 11:57 → EMEROO 11:57 → SUATTDRO 17:25 → 2NENU 19:06 → SUATTDRO 09-23 08:02 → ICNU 09-23 18:49 → 2NENU 09-25 13:26
PROVIDERS: ADMIT Internal Medicine; ATTEND Internal Medicine